=== PATIENT | male | born 1945 | race Caucasian/White ===

== ENCOUNTER 2017-03-23 20:29 | Inpatient (IN) | payer MEDICARE ==
[~2017-03-23] VITALS: Ht 182.9 cm; Wt 75.7 kg
[2017-03-23 20:45] VITALS: BP 132/91
[2017-03-23] MEDS ORDERED: ASPIRIN325 MG ORAL (20:48)
[2017-03-23] MEDS ORDERED: KEPPRA1000 MG ORAL (20:48)
[2017-03-23] MEDS ORDERED: QUETIAPINE FUMA25 MG ORAL (20:48)
[2017-03-23] MEDS ORDERED: GABAPENTIN100 MG ORAL (20:48)
[2017-03-23] MEDS ORDERED: LIDOCAINE700 M1 TP (20:48)
[2017-03-23] MEDS ORDERED: MELATONIN2.5 MG ORAL (20:48)
[2017-03-23] MEDS ORDERED: LEXAPRO10 MG ORAL (20:48)
[2017-03-23] MEDS ORDERED: LISINOPRIL5 MG ORAL (20:48)
[2017-03-23] MEDS ORDERED: ZOFRAN4 MG/5 ML ORAL (20:48)
[2017-03-23] MEDS ORDERED: TYLENOL650 MG/20. ORAL (20:48)
[2017-03-23] MEDS ORDERED: FAMOTIDINE20 MG ORAL (20:48)
[2017-03-23] MEDS ORDERED: AMANTADINE100 M2 ORAL (20:48)
[2017-03-23] MEDS ORDERED: HEPARIN SO5000 UNIT2 SUBQ (20:48)
[2017-03-23] MEDS ORDERED: BISACODYL5 MG RC (20:48)
[2017-03-23] MEDS ORDERED: TEMAZEPAM7.5 MG ORAL (20:48)
[2017-03-23] MEDS ORDERED: LOPRESSOR HCT1 EAC3 ORAL (20:48)
[2017-03-23] MEDS ORDERED: SENNA8.6 M2 PO (20:48)
[2017-03-23] MEDS ORDERED: CRESTOR20 MG ORAL (20:48)
[2017-03-23] MEDS ORDERED: LORazepam Inj 2mg/ml 1ml IV ONE (21:00)
--- NOTE | 2017-03-23 21:40 | Emergency Room Report ---
History of Present Illness General Chief Complaint: Seizure Source: Family Member, EMS Present Illness HPI This 71-year-old man presents after having a seizure at a shelter facility. He has a history of seizures. The last was in January. He was treated with Keppra. Recently they changed his medication and stopped keppra added Vimpat to that. Also added Depakote because the patient's had behavioral problems. He's also taking Seroquel. Apparently is no fever, vomiting, diarrhea. Patient's eating well. There's been no change in urine. The patient denies pain at this time. His daughter states he is back to baseline although more calm than usual. There are times when he has bouts of severe agitation. He also has sleep apnea. The patient suffered a hemorrhagic stroke in [place] last year. He was in rehabilitation there for 6 months. He was transferred here. He had his first seizure in January and was not treated with antiepileptic medication before that time. After that he was started on Keppra. An MRI revealed that he had some new stroke activity with a CT at that time was negative. The patient also has a history of atrial fibrillation. He is only on aspirin as a blood thinner. Allergies: Coded Allergies: No Known Allergies (Unverified , 03/23/17) Patient History Past Medical History: see triage record Past Surgical History: other - brain surgery for hemorrhagic stroke Social History Narrative SNF - with daughter Reviewed Nursing Documentation: PMH: Agreed, PSxH: Agreed Nursing Documentation-PM Past Medical History: No History, Except For Hx Cardiac Problems: Yes - A. Fib, High Cholesterol Hx Hypertension: Yes Hx Asthma: Yes Hx COPD: Yes Hx Gastrointestinal Problems: Yes - Dysphagia Hx Cerebrovascular Accident: Yes - Brain hemorrhage Hx Seizures: Yes Review of Systems All Other Systems: negative except mentioned in HPI Physical Exam Vital Signs Date Time Temp Pulse Resp B/P (MAP) Pulse Ox O2 Delivery O2 Flow Rate FiO2 03/23/17 20:25 98.4 94 20 132/91 97 Room Air Sp02 EP Interpretation: reviewed, normal General Appearance: alert, lethargic, Chronically Ill Head: normocephalic Eyes: bilateral eye normal inspection, bilateral eye PERRL ENT: moist mucus membranes Neck: supple Respiratory: lungs clear, normal breath sounds Cardiovascular #1: regular rate, rhythm Cardiovascular #2: 2+ radial (R) Gastrointestinal: normal inspection, normal bowel sounds, non tender, no mass, non-distended Musculoskeletal: back normal, gait/station normal, normal range of motion Neurologic: alert, responsive, sensory intact, motor weakness - L leg (chronic) Psychiatric: depressed affect Reflexes: 3+ knee (R), 2+ knee (L) Skin: normal inspection, warm/dry Medical Decision Making Diagnostic Impression: Primary Impression: Uncontrolled seizures Qualified Codes: 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 Differential includes, bleed, medication subtherapeutic levels, alert right imbalance, arrhythmia, acute myocardial infarction amongst others. The patient be evaluated with EKG, chest x-ray, labs including Depakote level. In addition a CT scan will be obtained of his head. The patient will be treated with a half milligram of Ativan to prevent more seizures here. Most likely the patient will need to be admitted to a monitored bed for observation. Patient tolerated IV Ativan well. EKG is without injury. Chest x-ray reveals a nodule on the right-hand side it is rotated. Labs are significant for deep low valproic acid level. A Depakote is given IV. The patient usually has sleep apnea home, didn't tolerate CPAP well here in the emergency department. Family wants the patient transferred to [facility] however [facility] had no beds. The patient is admitted to telemetry to Dr. Johnson. Laboratory Tests Test 03/23/17 21:30 03/24/17 06:53 White Blood Count 7.5 K/UL (4.8-10.8) 6.3 K/UL (4.8-10.8) Red Blood Count 4.40 M/UL (4.70-6.10) L 4.33 M/UL (4.70-6.10) L Hemoglobin 13.2 G/DL (14.2-18.0) L 13.0 G/DL (14.2-18.0) L Hematocrit 40.1 % (42.0-52.0) L 39.4 % (42.0-52.0) L Mean Corpuscular Volume 91 FL (80-99) 91 FL (80-99) Mean Corpuscular Hemoglobin 30.1 PG (27.0-31.0) 30.0 PG (27.0-31.0) Mean Corpuscular Hemoglobin Concent 33.0 G/DL (32.0-36.0) 32.9 G/DL (32.0-36.0) Red Cell Distribution Width 12.1 % (11.6-14.8) 12.3 % (11.6-14.8) Platelet Count 160 K/UL (150-450) 148 K/UL (150-450) L Mean Platelet Volume 8.6 FL (6.5-10.1) 8.2 FL (6.5-10.1) Neutrophils (%) (Auto) 49.3 % (45.0-75.0) 51.0 % (45.0-75.0) Lymphocytes (%) (Auto) 37.3 % (20.0-45.0) 36.6 % (20.0-45.0) Monocytes (%) (Auto) 9.4 % (1.0-10.0) 8.6 % (1.0-10.0) Eosinophils (%) (Auto) 3.2 % (0.0-3.0) H 2.9 % (0.0-3.0) Basophils (%) (Auto) 0.8 % (0.0-2.0) 0.9 % (0.0-2.0) Sodium Level 146 MMOL/L (136-145) H 147 MMOL/L (136-145) H Potassium Level 4.1 MMOL/L (3.5-5.1) 3.9 MMOL/L (3.5-5.1) Chloride Level 108 MMOL/L (98-107) H 108 MMOL/L (98-107) H Carbon Dioxide Level 33 MMOL/L (21-32) H 31 MMOL/L (21-32) Anion Gap 5 mmol/L (5-15) 9 mmol/L (5-15) Blood Urea Nitrogen 19 mg/dL (7-18) H 16 mg/dL (7-18) Creatinine 1.2 MG/DL (0.55-1.30) 1.0 MG/DL (0.55-1.30) Estimate Glomerular Filtration Rate mL/min (>60) mL/min (>60) Glucose Level 100 MG/DL (74-106) 90 MG/DL (74-106) Calcium Level 9.0 MG/DL (8.5-10.1) 9.1 MG/DL (8.5-10.1) Total Bilirubin 0.4 MG/DL (0.2-1.0) 0.5 MG/DL (0.2-1.0) Aspartate Amino Transferase (AST) 17 U/L (15-37) 15 U/L (15-37) Alanine Aminotransferase (ALT) 32 U/L (12-78) 28 U/L (12-78) Alkaline Phosphatase 92 U/L (46-116) 87 U/L (46-116) Total Creatine Kinase 47 U/L (26-308) Troponin I 0.004 ng/mL (0.000-0.056) 0.009 ng/mL (0.000-0.056) Total Protein 6.9 G/DL (6.4-8.2) 6.7 G/DL (6.4-8.2) Albumin 3.4 G/DL (3.4-5.0) 3.3 G/DL (3.4-5.0) L Globulin 3.5 g/dL 3.4 g/dL Albumin/Globulin Ratio 1.0 (1.0-2.7) 1.0 (1.0-2.7) Valproic Acid Level 17 MCG/ML (50-100) L Hemoglobin A1c 5.5 % (4.3-6.0) Thyroid Stimulating Hormone (TSH) 2.936 uiU/mL (0.358-3.740) EKG Diagnostic Results Rate: normal Rhythm: other - a fib ST Segments: no acute changes Rhythm Strip Diag. Results EP Interpretation: yes Rhythm: no PVC's, no ectopy, other - a flutter/fib Chest X-Ray Diagnostic Results Chest X-Ray Diagnostic Results : Chest X-Ray Ordered: Yes # of Views/Limited/Complete: 1 View Indication: Other EP Interpretation: Yes Interpretation: no consolidation, no effusion, no pneumothorax, other - R nodule - rotated Impression: No acute disease Electronically Signed by: Electronically signed by Burt Martinez MD CT/MRI/US Diagnostic Results CT/MRI/US Diagnostic Results : Imaging Test Ordered: head Impression No intracranial hemorrhage, mass effect or CT evidence of acute infarct. Status post right craniotomy with some adjacent area of encephalomalacia in compensatory dilatation of the right ventricle. Paraventricular white matter areas of low attenuation is nonspecific. No hydrocephalus or midline shift. Visualized right maxillary and ethmoid sinuses air-fluid levels may be from epistaxis or existing sinusitis and the soft tissue gas. Old right medial and inferior orbital wall fracture deformities. Mastoids are clear Last Vital Signs Date Time Temp Pulse Resp B/P (MAP) Pulse Ox O2 Delivery O2 Flow Rate FiO2 03/24/17 09:50 120 124/82 03/24/17 08:35 97.0 20 98 Nasal Cannula 2.0 03/24/17 07:41 28 Status: improved Disposition: ADMITTED INPATIENT Condition: Serious Referrals: NON PHYSICIAN (PCP) Burt Martinez M.D. Mar 23, 2017 21:40
[2017-03-23 21:45] VITALS: BP 135/97
[2017-03-23 21:47] LABS: BASOPHILS % (AUTO) 0.8 % (0.0-2.0); EOSINOPHILS % (AUTO) 3.2 % (0.0-3.0); HEMATOCRIT 40.1 % (42.0-52.0); HEMOGLOBIN 13.2 G/DL (14.2-18.0); LYMPHOCYTES % (AUTO) 37.3 % (20.0-45.0); MEAN CORPUSCULAR VOLUME 91 FL (80-99); MONOCYTES % (AUTO) 9.4 % (1.0-10.0); NEUTROPHILS % (AUTO) 49.3 % (45.0-75.0); PLATELET COUNT 160 K/UL (150-450); RED CELL DISTRIBUTION WIDTH 12.1 % (11.6-14.8); WHITE BLOOD COUNT 7.5 K/UL (4.8-10.8)
[2017-03-23 22:11] LABS: ANION GAP 5 mmol/L (5-15); BLOOD UREA NITROGEN 19 mg/dL (7-18); CARBON DIOXIDE 33 MMOL/L (21-32); CHLORIDE 108 MMOL/L (98-107); CREATININE 1.2 MG/DL (0.55-1.30); POTASSIUM 4.1 MMOL/L (3.5-5.1); SODIUM 146 MMOL/L (136-145)
[2017-03-23 22:16] LABS: ALANINE AMINOTRANSFERASE 32 U/L (12-78); ALBUMIN 3.4 G/DL (3.4-5.0); ALKALINE PHOSPHATASE 92 U/L (46-116); ASPARTATE AMINO TRANSFERASE 17 U/L (15-37); BILIRUBIN,TOTAL 0.4 MG/DL (0.2-1.0); CREATINE KINASE 47 U/L (26-308)
[2017-03-23] MEDS ORDERED: Valproate Sodium INJ 750 MG in D5W 47.5 ML IVPB ONE (22:30)
[2017-03-23 22:45] VITALS: BP 138/99
[2017-03-23 23:45] VITALS: BP 125/100
[2017-03-24] MEDS ORDERED: LORazepam Inj 2mg/ml 1ml IV PRN ×2 (03:15→03:45)
[2017-03-24] MEDS ORDERED: Sennosides 8.6mg ORAL PRN (03:30)
[2017-03-24 04:00] VITALS: BP 140/100
[2017-03-24 08:05] LABS: BASOPHILS % (AUTO) 0.9 % (0.0-2.0); EOSINOPHILS % (AUTO) 2.9 % (0.0-3.0); HEMATOCRIT 39.4 % (42.0-52.0); LYMPHOCYTES % (AUTO) 36.6 % (20.0-45.0); MEAN CORPUSCULAR VOLUME 91 FL (80-99); MONOCYTES % (AUTO) 8.6 % (1.0-10.0); PLATELET COUNT 148 K/UL (150-450); RED BLOOD COUNT 4.33 M/UL (4.70-6.10); RED CELL DISTRIBUTION WIDTH 12.3 % (11.6-14.8); WHITE BLOOD COUNT 6.3 K/UL (4.8-10.8)
[2017-03-24 08:35] VITALS: BP 124/82
--- NOTE | 2017-03-24 08:37 | Consultation ---
History of Present Illness General Date patient seen: Mar 24, 2017 Time patient seen: 07:15 Chief Complaint: Seizure Referring physician: dr Johnson Reason for Consultation: JAEL/CPAP management Present Illness HPI 71 y/ld male with PMH of COPD, asthma , ICH, Atrial fibrillation, s/p craniotomy , seizure disorder, JAEL ( on CPAP at night), presented after witnessed seizure episode at the snf facility. Patient under care of neurologist at [facility] group and was recently changed his anticonvulsant regimen Denied fever, vomiting, diarrhea. No chest pain, no SOB, no palpitations only takes ASA , no a/coag fir A fib CT head in EF revealed no evidence of acute IC pathology VSS ECG with A fib with RVR patient was admitted for further management Allergies: Coded Allergies: No Known Allergies (Unverified , 03/23/17) Medication History Scheduled Amantadine Hcl* (Amantadine*), 100 MG ORAL TWICE A DAY, (Reported) Aspirin* (Aspirin*), 325 MG ORAL DAILY, (Reported) Bisacodyl* (Dulcolax*), 10 MG RC ONCE, (Reported) Escitalopram Oxalate* (Lexapro*), 10 MG ORAL DAILY, (Reported) Famotidine (Famotidine), 20 MG ORAL TWICE A DAY, (Reported) Gabapentin* (Gabapentin*), 200 MG ORAL BID, (Reported) Heparin Sod (Porcine) (Heparin Sodium*), 5,000 UNITS SUBQ EVERY 12 HOURS, ( Reported) Levetiracetam (Keppra), 1,000 MG ORAL TWICE A DAY, (Reported) Lisinopril (Lisinopril*), 5 MG ORAL DAILY, (Reported) Metoprolol/Hydrochlorothiazide (Lopressor Hct 50-25 Tablet), 1 TAB ORAL DAILY, ( Reported) Ondansetron Hcl (Zofran), 4 MG ORAL Q8HR, (Reported) Quetiapine Fumarate* (Seroquel*), 25 MG ORAL DAILY, (Reported) Rosuvastatin Calcium* (Crestor*), 20 MG ORAL DAILY, (Reported) Temazepam (Temazepam*), 7.5 MG ORAL BEDTIME, (Reported) Scheduled PRN Acetaminophen (Acetaminophen), 650 MG ORAL Q6H PRN for Prn Headache/Temp > 101, (Reported) Melatonin (Melatonin), 105 MG ORAL BEDTIME PRN for Insomnia, (Reported) Miscellaneous Medications Lidocaine (Lidocaine), 700 MG TP, (Reported) Sennosides (Senna), Unknown Dose PO, (Reported) Patient History Healthcare decision maker Resuscitation status Full Code Advanced Directive on File No Review of Systems Constitutional: Reports: weakness Eye: Reports: no symptoms ENT: Reports: other - hx of craniotomy Respiratory: Reports: see HPI Cardiovascular: Reports: see HPI Gastrointestinal: Reports: constipation Genitourinary: Reports: no symptoms Musculoskeletal: Reports: muscle pain, muscle stiffness Skin: Reports: no symptoms Psychiatric: Reports: anxiety, depressed feelings Neurological: Reports: see HPI Hematologic/Lymphatic: Reports: no symptoms Physical Exam General Appearance: no apparent distress, alert, other - weak, bedriden Lines, tubes and drains: peripheral HEENT: normocephalic, atraumatic Respiratory/Chest: lungs clear - with moderate air entry , no respiratory distress Cardiovascular/Chest: normal peripheral pulses, no JVD, tachycardia, irregularly irregular - fib with tachy Abdomen: normal bowel sounds, non tender, soft Extremities: normal range of motion, non-tender, no calf tenderness Neurologic: alert, responsive Musculoskeletal: normal muscle bulk Last 24 Hour Vital Signs Date Time Temp Pulse Resp B/P (MAP) Pulse Ox O2 Delivery O2 Flow Rate FiO2 03/24/17 07:41 Nasal Cannula 2.0 28 03/24/17 07:41 98 Nasal Cannula 2.0 28 03/24/17 06:03 Nasal Cannula 2.0 28 03/24/17 04:00 98 03/24/17 04:00 97.0 99 20 140/100 100 03/24/17 03:00 105 20 99 Facial 35 03/24/17 01:00 98.5 105 20 125/100 99 Nasal Cannula 2.0 03/23/17 23:45 98.5 105 20 125/100 99 Nasal Cannula 2.0 03/23/17 22:45 98.4 102 20 138/99 99 Nasal Cannula 2.0 03/23/17 21:45 98.3 98 20 135/97 98 Nasal Cannula 2.0 03/23/17 20:45 96 20 Nasal Cannula 2.0 03/23/17 20:45 98.4 96 20 132/91 97 Nasal Cannula 2.0 03/23/17 20:25 98.4 94 20 132/91 97 Room Air Intake and Output 03/23/17 03/24/17 19:00 07:00 Intake Total 300 ml Balance 300 ml Intake Oral 0 ml IV Total 300 ml # Voids 2 Laboratory Tests Test 03/23/17 21:30 03/24/17 06:53 White Blood Count 7.5 K/UL (4.8-10.8) 6.3 K/UL (4.8-10.8) Red Blood Count 4.40 M/UL (4.70-6.10) L 4.33 M/UL (4.70-6.10) L Hemoglobin 13.2 G/DL (14.2-18.0) L 13.0 G/DL (14.2-18.0) L Hematocrit 40.1 % (42.0-52.0) L 39.4 % (42.0-52.0) L Mean Corpuscular Volume 91 FL (80-99) 91 FL (80-99) Mean Corpuscular Hemoglobin 30.1 PG (27.0-31.0) 30.0 PG (27.0-31.0) Mean Corpuscular Hemoglobin Concent 33.0 G/DL (32.0-36.0) 32.9 G/DL (32.0-36.0) Red Cell Distribution Width 12.1 % (11.6-14.8) 12.3 % (11.6-14.8) Platelet Count 160 K/UL (150-450) 148 K/UL (150-450) L Mean Platelet Volume 8.6 FL (6.5-10.1) 8.2 FL (6.5-10.1) Neutrophils (%) (Auto) 49.3 % (45.0-75.0) 51.0 % (45.0-75.0) Lymphocytes (%) (Auto) 37.3 % (20.0-45.0) 36.6 % (20.0-45.0) Monocytes (%) (Auto) 9.4 % (1.0-10.0) 8.6 % (1.0-10.0) Eosinophils (%) (Auto) 3.2 % (0.0-3.0) H 2.9 % (0.0-3.0) Basophils (%) (Auto) 0.8 % (0.0-2.0) 0.9 % (0.0-2.0) Sodium Level 146 MMOL/L (136-145) H Pending Potassium Level 4.1 MMOL/L (3.5-5.1) Pending Chloride Level 108 MMOL/L (98-107) H Pending Carbon Dioxide Level 33 MMOL/L (21-32) H Pending Anion Gap 5 mmol/L (5-15) Blood Urea Nitrogen 19 mg/dL (7-18) H Pending Creatinine 1.2 MG/DL (0.55-1.30) Pending Estimat Glomerular Filtration Rate mL/min (>60) Pending Glucose Level 100 MG/DL (74-106) Pending Calcium Level 9.0 MG/DL (8.5-10.1) Pending Total Bilirubin 0.4 MG/DL (0.2-1.0) Pending Aspartate Amino Transf (AST/SGOT) 17 U/L (15-37) Pending Alanine Aminotransferase (ALT/SGPT) 32 U/L (12-78) Pending Alkaline Phosphatase 92 U/L (46-116) Pending Total Creatine Kinase 47 U/L (26-308) Troponin I 0.004 ng/mL (0.000-0.056) Pending Total Protein 6.9 G/DL (6.4-8.2) Pending Albumin 3.4 G/DL (3.4-5.0) Pending Globulin 3.5 g/dL Pending Albumin/Globulin Ratio 1.0 (1.0-2.7) Valproic Acid (Depakene) Level 17 MCG/ML (50-100) L Hemoglobin A1c Pending Thyroid Stimulating Hormone (TSH) Pending Height (Feet): 6 Weight (Pounds): 167 Medications Current Medications Medications (Trade) Dose Ordered Sig/Roseanna Route PRN Reason Start Time Stop Time Status Last Admin Dose Admin Acetaminophen (Tylenol) 650 mg Q6H PRN ORAL Mild Pain/Temp > 100.5 03/24/17 03:15 04/23/17 03:14 Amantadine HCl (Symmetrel) 100 mg TWICE A DAY ORAL 03/24/17 09:00 04/23/17 08:59 Aspirin (ASA) 325 mg DAILY ORAL 03/24/17 09:00 04/23/17 08:59 Atorvastatin Calcium (Lipitor) 80 mg BEDTIME ORAL 03/24/17 21:00 04/23/17 20:59 Bisacodyl (Dulcolax) 10 mg DAILYPRN PRN RECTAL Constipation 03/24/17 03:15 04/23/17 03:14 Divalproex Sodium (Depakote Sprinkles) 125 mg EVERY 12 HOURS ORAL 03/24/17 09:00 04/23/17 08:59 Famotidine (Pepcid) 20 mg BID ORAL 03/24/17 09:00 04/23/17 08:59 Heparin Sodium (Porcine) (Heparin 5000 units/ml) 5,000 units EVERY 12 HOURS SUBQ 03/24/17 09:00 04/23/17 08:59 Hydrochlorothiazide (Hydrodiuril) 25 mg DAILY ORAL 03/24/17 09:00 04/23/17 08:59 Levetiracetam (Keppra) 1,000 mg Q12HR ORAL 03/24/17 09:00 04/23/17 08:59 Lidocaine (Lidoderm 5% PATCH) 1 patch DAILY TDERMAL 03/24/17 09:00 04/23/17 08:59 Lorazepam (Ativan 2mg/ml 1ml) 1 mg PRN PRN IV For Seizures 03/24/17 03:45 03/31/17 03:14 Metoprolol Tartrate (Lopressor) 50 mg DAILY ORAL 03/24/17 09:00 04/23/17 08:59 Ondansetron HCl (Zofran) 4 mg Q6H PRN IVP Nausea & Vomiting 03/24/17 03:15 04/23/17 03:14 Quetiapine Fumarate (SEROquel) 50 mg DAILY PRN ORAL Agitation 03/24/17 06:15 04/23/17 06:14 03/24/17 06:55 Sennosides (Senokot) 1 tab DAILY PRN ORAL Constipation 03/24/17 03:30 04/23/17 03:29 Sodium Chloride 1,000 ml @ 300 mls/hr Q3H20M IV 03/23/17 21:00 04/22/17 20:59 03/23/17 21:11 Assessment/Plan Assessment/Plan ASSESSMENT uncontrolled seizures HTN COPD/asthma JAEL A fib dysphagia s/p craniotomy 2 to ICH PLAN OF CARE tele seizure precautions, continue Keppra neuro eval as per PMD O2 HHN orn CXR noted BiPAP at night, encourage compliancecardio eval pending rate control with BB for now probably no a/coagulation due to hx of ICH continue ASA , statin, BB BP management with current regimen and optimize as needed continue psych meds swallow eval fup with ST recommendations afterwards DVT GI prophylaxis case discussed and evaluated by supervising physician Anibal ([facility]),Lindy HUGGINS Mar 24, 2017 08:37
--- NOTE | 2017-03-24 08:48 | Diagnostic Imaging Report ---
Indication: Lesion Technique: Continuous helical CT scanning of the head was performed without intravenous contrast material. Axial and coronal 5 mm sections were generated. Dose: Total Dose Length Product - DLP [address] Dose Index - CTDIvol(s) 70.38 mGy. Automated exposure control was utilized for dose reduction. Comparison: None Findings: Ventilation demonstrates an area of encephalomalacia in the right middle cerebral artery territory including the right posterior frontal, basal ganglia, internal capsule, and insula and right temporal lobe. There has been a right temporal craniotomy. The ventricles are prominent. There is prominence of cortical sulci. Periventricular low density is present. There is no shift of midline structures. No abnormal extra-axial fluid collections are noted. There is no evidence of intracerebral bleeding. No other abnormal high or low density areas are noted within the brain. There is a previous right medial orbital wall fracture. Opacification of the right maxillary and right ethmoid sinuses also noted. Impression: Atrophy. Chronic small vessel white matter ischemic change. Previous right temporal craniotomy. Encephalomalacia in the right middle cerebral artery territory consistent with old infarct. Old right medial orbital wall fracture. Inflammatory changes in the right ethmoid and right maxillary sinus. The above report is concordant with preliminary reading by [employer] . The CT scanner at [facility] is accredited by the [employer] and the scans are performed using protocols designed to limit radiation exposure to as low as reasonably achievable to attain images of sufficient resolution adequate for diagnostic evaluation.
[2017-03-24 08:57] LABS: ALANINE AMINOTRANSFERASE 28 U/L (12-78); ALBUMIN 3.3 G/DL (3.4-5.0); ALKALINE PHOSPHATASE 87 U/L (46-116); ANION GAP 9 mmol/L (5-15); ASPARTATE AMINO TRANSFERASE 15 U/L (15-37); BILIRUBIN,TOTAL 0.5 MG/DL (0.2-1.0); BLOOD UREA NITROGEN 16 mg/dL (7-18); CALCIUM 9.1 MG/DL (8.5-10.1); CARBON DIOXIDE 31 MMOL/L (21-32); CHLORIDE 108 MMOL/L (98-107); POTASSIUM 3.9 MMOL/L (3.5-5.1); SODIUM 147 MMOL/L (136-145)
[2017-03-24] MEDS ORDERED: Lisinopril 2.5mg tab ORAL SCH (09:00)
[2017-03-24] MEDS ORDERED: Metoprolol Tartrate 50mg tab ORAL SCH (09:00)
[2017-03-24] MEDS ORDERED: Heparin 5000 units/ml inj SUBQ SCH (09:00)
[2017-03-24] MEDS ORDERED: Depakote 125mg Sprinkles ORAL SCH (09:00)
--- NOTE | 2017-03-24 09:29 | Diagnostic Imaging Report ---
Indication: Shortness of breath Technique: XRAY Chest 1v Comparison:None Findings: The heart is normal in size. The aorta is elongated and calcified. There is a calcified granuloma in the right midlung. The remainder the lungs are clear. No pleural fluid. Impression: Old granulomatous disease. Atherosclerotic change. Otherwise negative.
--- NOTE | 2017-03-24 09:42 | History & Physical ---
History and Physical History & Physicial seen and examined. Dict in progress Phan Johnson MD Mar 24, 2017 09:42
--- NOTE | 2017-03-24 09:49 | General Progress Note ---
Assessment/Plan Status: stable Assessment/Plan 1- Acute Sz disorder 2- CVA 3- ICH 4- Dementia-agitated type 5- Afib-rate uncontrolled. 6. Hematuria 7. GI-DVT prophylaxia Plan: Neuro, Cardio, Urology ( Dr Ann ) are consulted. will hold anticoagulation for now, in face of active hematuria Subjective ROS Limited/Unobtainable: No Constitutional: Reports: no symptoms HEENT: Reports: no symptoms Cardiovascular: Reports: no symptoms Respiratory: Reports: no symptoms Allergies: Coded Allergies: No Known Allergies (Unverified , 03/23/17) Objective Last 24 Hour Vital Signs Date Time Temp Pulse Resp B/P (MAP) Pulse Ox O2 Delivery O2 Flow Rate FiO2 03/24/17 08:35 97.0 120 20 124/82 98 Nasal Cannula 2.0 03/24/17 07:41 Nasal Cannula 2.0 28 03/24/17 07:41 98 Nasal Cannula 2.0 28 03/24/17 06:03 Nasal Cannula 2.0 28 03/24/17 04:00 98 03/24/17 04:00 97.0 99 20 140/100 100 03/24/17 03:00 105 20 99 Facial 35 03/24/17 01:00 98.5 105 20 125/100 99 Nasal Cannula 2.0 03/23/17 23:45 98.5 105 20 125/100 99 Nasal Cannula 2.0 03/23/17 22:45 98.4 102 20 138/99 99 Nasal Cannula 2.0 03/23/17 21:45 98.3 98 20 135/97 98 Nasal Cannula 2.0 03/23/17 20:45 96 20 Nasal Cannula 2.0 03/23/17 20:45 98.4 96 20 132/91 97 Nasal Cannula 2.0 03/23/17 20:25 98.4 94 20 132/91 97 Room Air Intake and Output 03/23/17 03/24/17 19:00 07:00 Intake Total 300 ml Balance 300 ml Intake Oral 0 ml IV Total 300 ml # Voids 2 Laboratory Tests 03/23/17 21:30: White Blood Count 7.5, Red Blood Count 4.40L, Hemoglobin 13.2L, Hematocrit 40.1L , Mean Corpuscular Volume 91, Mean Corpuscular Hemoglobin 30.1, Mean Corpuscular Hemoglobin Concent 33.0, Red Cell Distribution Width 12.1, Platelet Count 160, Mean Platelet Volume 8.6, Neutrophils (%) (Auto) 49.3, Lymphocytes (% ) (Auto) 37.3, Monocytes (%) (Auto) 9.4, Eosinophils (%) (Auto) 3.2H, Basophils (%) (Auto) 0.8, Sodium Level 146H, Potassium Level 4.1, Chloride Level 108H, Carbon Dioxide Level 33H, Anion Gap 5, Blood Urea Nitrogen 19H, Creatinine 1.2, Estimat Glomerular Filtration Rate , Glucose Level 100, Calcium Level 9.0, Total Bilirubin 0.4, Aspartate Amino Transf (AST/SGOT) 17, Alanine Aminotransferase (ALT/SGPT) 32, Alkaline Phosphatase 92, Total Creatine Kinase 47, Troponin I 0.004, Total Protein 6.9, Albumin 3.4, Globulin 3.5, Albumin/ Globulin Ratio 1.0, Valproic Acid (Depakene) Level 17L 03/24/17 06:53: White Blood Count 6.3, Red Blood Count 4.33L, Hemoglobin 13.0L, Hematocrit 39.4L , Mean Corpuscular Volume 91, Mean Corpuscular Hemoglobin 30.0, Mean Corpuscular Hemoglobin Concent 32.9, Red Cell Distribution Width 12.3, Platelet Count 148L, Mean Platelet Volume 8.2, Neutrophils (%) (Auto) 51.0, Lymphocytes ( %) (Auto) 36.6, Monocytes (%) (Auto) 8.6, Eosinophils (%) (Auto) 2.9, Basophils (%) (Auto) 0.9, Sodium Level 147H, Potassium Level 3.9, Chloride Level 108H, Carbon Dioxide Level 31, Anion Gap 9, Blood Urea Nitrogen 16, Creatinine 1.0, Estimat Glomerular Filtration Rate , Glucose Level 90, Calcium Level 9.1, Total Bilirubin 0.5, Aspartate Amino Transf (AST/SGOT) 15, Alanine Aminotransferase ( ALT/SGPT) 28, Alkaline Phosphatase 87, Troponin I 0.009, Total Protein 6.7, Albumin 3.3L, Globulin 3.4, Albumin/Globulin Ratio 1.0, Hemoglobin A1c 5.5, Thyroid Stimulating Hormone (TSH) 2.936 Height (Feet): 6 Weight (Pounds): 167 General Appearance: no apparent distress EENT: PERRL/EOMI Neck: supple Cardiovascular: normal rate Respiratory/Chest: lungs clear Abdomen: soft Extremities: other - left karena-plegia Neurologic: other - left hemipelegia. stuttering Phan Johnson MD Mar 24, 2017 09:49
[2017-03-24] MEDS: Amantadine 100mg cap ORAL SCH ×2 (09:50→17:19)
[2017-03-24] MEDS: Enoxaparin 40mg Inj SUBQ SCH (10:00)
--- NOTE | 2017-03-24 11:15 | Consultation ---
DATE OF CONSULTATION: 03/24/2017 UROLOGY CONSULTATION CONSULTING PHYSICIAN: Willian Jacob M.D. ATTENDING/REFERRING PHYSICIAN: Phan Johnson M.D. REASON FOR CONSULTATION: I was asked by Dr. Johnson to evaluate this 71-year-old gentleman regarding history of gross hematuria. HISTORY OF PRESENT ILLNESS: Briefly, the patient had a hemorrhagic stroke in [facility] approximately 6-8 months back. He had been on Eliquis prior to that time. He eventually recovered and went to rehabilitation. He returned to [place] and in January had a seizure. He was treated with antiepileptic medication. He has done okay after that time, but recently suffered another seizure and was eventually brought here for further evaluation. The patient has been maintained on aspirin as a blood thinner because of history of atrial fibrillation. There has been no additional anticoagulation given his previous history of hemorrhagic stroke on the Eliquis. During hospitalization here, he was noted to have gross hematuria. As such, I was asked to evaluate the patient. PAST MEDICAL HISTORY: 1. Stroke. 2. Seizure disorder. 3. Atrial fibrillation. PAST SURGICAL HISTORY: Craniotomy for intracranial hemorrhage decompression. MEDICATIONS: Please see the chart for current medications, administration details. As noted above, the patient is on aspirin at baseline for atrial fibrillation. ALLERGIES: No known drug allergies. SOCIAL HISTORY: Unremarkable for tobacco, alcohol, or drug use. FAMILY HISTORY: Noncontributory. REVIEW OF SYSTEMS: A 12-system review of systems is essentially unremarkable outside of what was described above. PHYSICAL EXAMINATION: GENERAL: The patient is an older gentleman, awake, alert, appears oriented, in no obvious distress. HEENT: NC/AT. EOMI. Oropharynx clear. NECK: Supple. CHEST: Within normal limits. ABDOMEN: Soft, nontender, nondistended. EXTREMITIES: Warm and well perfused. No cyanosis, clubbing, or edema. NEUROLOGIC: Notable for left arm hemiplegia. GENITOURINARY: Reveals a normal male phallus, circumcised. No discharge, lesions, or curvature. There are bilateral descended testes and cord structures with no masses or tenderness to palpation. LABORATORY DATA: White blood cell count 6.3, hematocrit 39.4, platelets 148,000. Sodium 147, potassium 3.9, chloride 108, bicarbonate 31, BUN 16, creatinine 1.0, glucose 90, calcium 9.1. LFTs within normal limits. Alkaline phosphatase 87. Valproic acid level 17. DIAGNOSTIC IMAGING: Head CT with atrophy, chronic small-vessel white matter ischemic changes, previous right temporal craniotomy, encephalomalacia in the right middle cerebral artery territory consistent with an old infarct, old right medial orbital wall fracture, inflammatory changes in the ethmoid and maxillary sinuses. ASSESSMENT AND PLAN: In summary, the patient is a 71-year-old gentleman with history of previous hemorrhagic stroke and atrial fibrillation, maintained on aspirin. He presents to the hospital with a seizure and has history of the same. His course was notable for gross hematuria. Physical exam reveals left arm hemiplegia and is otherwise unremarkable. Laboratory data is also unremarkable although no urinalysis or urine culture has been collected or sent. Diagnostic imaging with head CT scan does not reveal any evidence of fresh stroke. I discussed these findings today with the patient's at the bedside. I am going to order urinalysis and urine culture to evaluate for infection. I will start the patient on some antibiotics presumptively. We will hold any anticoagulation for the time being until the patient's gross hematuria improves. If it fails to improve with these measures, we will consider performing a CT scan or further investigation as warranted. Additionally, I performed a bladder scan at the patient's bedside today and revealed a postvoid residual of mL indicating that he is draining his bladder well despite the hematuria and clots and does not currently need a catheter at this time. Thank you for allowing me to participate in the care of this nice gentleman. Please do not hesitate to contact me with any questions that you may further have regarding his care. I will be happy to continue to see him with you as needed. Willian Jacob M.D. DR: Odin JOB#: [id number] CC:
[2017-03-24] MEDS ORDERED: Metoprolol 5mg/5ml Inj IVP ONE (12:00)
[2017-03-24] MEDS ORDERED: ceFAZolin 1gm/50ml Premix 50 ML IV SCH (12:00)
--- NOTE | 2017-03-24 12:25 | Neurology Progress Note ---
Objective Physical Exam Last Vital Signs Date Time Temp Pulse Resp B/P (MAP) Pulse Ox O2 Delivery O2 Flow Rate FiO2 03/24/17 09:50 120 124/82 03/24/17 08:35 97.0 20 98 Nasal Cannula 2.0 03/24/17 07:41 28 Laboratory Tests Test 03/23/17 21:30 03/24/17 06:53 White Blood Count 7.5 K/UL (4.8-10.8) 6.3 K/UL (4.8-10.8) Red Blood Count 4.40 M/UL (4.70-6.10) L 4.33 M/UL (4.70-6.10) L Hemoglobin 13.2 G/DL (14.2-18.0) L 13.0 G/DL (14.2-18.0) L Hematocrit 40.1 % (42.0-52.0) L 39.4 % (42.0-52.0) L Mean Corpuscular Volume 91 FL (80-99) 91 FL (80-99) Mean Corpuscular Hemoglobin 30.1 PG (27.0-31.0) 30.0 PG (27.0-31.0) Mean Corpuscular Hemoglobin Concent 33.0 G/DL (32.0-36.0) 32.9 G/DL (32.0-36.0) Red Cell Distribution Width 12.1 % (11.6-14.8) 12.3 % (11.6-14.8) Platelet Count 160 K/UL (150-450) 148 K/UL (150-450) L Mean Platelet Volume 8.6 FL (6.5-10.1) 8.2 FL (6.5-10.1) Neutrophils (%) (Auto) 49.3 % (45.0-75.0) 51.0 % (45.0-75.0) Lymphocytes (%) (Auto) 37.3 % (20.0-45.0) 36.6 % (20.0-45.0) Monocytes (%) (Auto) 9.4 % (1.0-10.0) 8.6 % (1.0-10.0) Eosinophils (%) (Auto) 3.2 % (0.0-3.0) H 2.9 % (0.0-3.0) Basophils (%) (Auto) 0.8 % (0.0-2.0) 0.9 % (0.0-2.0) Sodium Level 146 MMOL/L (136-145) H 147 MMOL/L (136-145) H Potassium Level 4.1 MMOL/L (3.5-5.1) 3.9 MMOL/L (3.5-5.1) Chloride Level 108 MMOL/L (98-107) H 108 MMOL/L (98-107) H Carbon Dioxide Level 33 MMOL/L (21-32) H 31 MMOL/L (21-32) Anion Gap 5 mmol/L (5-15) 9 mmol/L (5-15) Blood Urea Nitrogen 19 mg/dL (7-18) H 16 mg/dL (7-18) Creatinine 1.2 MG/DL (0.55-1.30) 1.0 MG/DL (0.55-1.30) Estimat Glomerular Filtration Rate mL/min (>60) mL/min (>60) Glucose Level 100 MG/DL (74-106) 90 MG/DL (74-106) Calcium Level 9.0 MG/DL (8.5-10.1) 9.1 MG/DL (8.5-10.1) Total Bilirubin 0.4 MG/DL (0.2-1.0) 0.5 MG/DL (0.2-1.0) Aspartate Amino Transf (AST/SGOT) 17 U/L (15-37) 15 U/L (15-37) Alanine Aminotransferase (ALT/SGPT) 32 U/L (12-78) 28 U/L (12-78) Alkaline Phosphatase 92 U/L (46-116) 87 U/L (46-116) Total Creatine Kinase 47 U/L (26-308) Troponin I 0.004 ng/mL (0.000-0.056) 0.009 ng/mL (0.000-0.056) Total Protein 6.9 G/DL (6.4-8.2) 6.7 G/DL (6.4-8.2) Albumin 3.4 G/DL (3.4-5.0) 3.3 G/DL (3.4-5.0) L Globulin 3.5 g/dL 3.4 g/dL Albumin/Globulin Ratio 1.0 (1.0-2.7) 1.0 (1.0-2.7) Valproic Acid (Depakene) Level 17 MCG/ML (50-100) L Hemoglobin A1c 5.5 % (4.3-6.0) Thyroid Stimulating Hormone (TSH) 2.936 uiU/mL (0.358-3.740) Impression/Recommendations Problems: (1) Seizure as late effect of cerebrovascular accident (CVA) Status: stable Recommendations #[id number] GRICELDA BOND Mar 24, 2017 12:25
[2017-03-24] MEDS ORDERED: Metoprolol Tartrate 50mg tab ORAL ONE (12:30)
[2017-03-24 12:45] VITALS: BP 135/106
[2017-03-24] MEDS: ceFAZolin sod 1 GM in NS 55 ML IVPB SCH ×2 (13:50→22:30)
[2017-03-24] MEDS: Lacosamide 100 MG TABLET ORAL SCH ×2 (14:17→20:12)
--- NOTE | 2017-03-24 16:00 | History and Physical Report ---
DATE OF ADMISSION: 03/23/2017 SOURCE OF INFORMATION: The patient and EMR. HISTORY OF PRESENT ILLNESS: The patient is a pleasant 71-year-old white male, who presented with an acute seizure episode from a jail facility ([facility]). The patient is status post CVA and left-sided hemiplegia, status post completion of the rehabilitation treatment in the [facility]. At the time of evaluation, the patient denies any chest pain, shortness of breath. No abnormal bleeding. No abnormal diarrhea or constipation. ALLERGIES: NKDA. FAMILY HISTORY: Reviewed, noncontributory. SOCIAL HISTORY: This patient currently lives in the jail facility, [facility]. No documented history of illicit drug abuse noted. PAST MEDICAL HISTORY: ICH/CVA with left-sided hemiplegia, atrial fibrillation, hypercholesterolemia, asthma, COPD, and seizure disorder with depressed episode in January. CURRENT HOSPITAL MEDICATIONS: Reviewed including but not limited to amantadine, aspirin 325, Depakote 125 mg q.12 hours, Lovenox 40 mg subcutaneous, hydrochlorothiazide 25 mg t.i.d., metoprolol 50 mg b.i.d., Seroquel 50 mg p.o. p.r.n. agitation. PHYSICAL EXAMINATION: VITAL SIGNS: Blood pressure 130/90, temperature 98.2, pulse oximetry 98% on room air, pulse rate 100-110. HEAD AND NECK: Left-sided flaccid hemiparesis. CHEST: Clear to auscultation. HEART: S1 and S2. Irregularly irregular. ABDOMEN: Soft. No organomegaly. MUSCULOSKELETAL: Left-sided hemiplegia. NEUROLOGIC: The patient is awake, alert, oriented x2, the patient is anxious. LABORATORY DATA: Dated 03/23/2017, shows WBC 7.5, hemoglobin 13.2, platelet of 160,000. Sodium 146, potassium 4.1, BUN 19, creatinine 1.2. TSH of 2.9. CT scan of the brain is negative for any acute pathology, positive for old changes. ASSESSMENT: 1. Acute seizure disorder. 2. Cerebrovascular accident with left-sided hemiplegia. 3. Dementia, agitated type. 4. Hypernatremia. 5. Anemia. 6. Atrial fibrillation, uncontrolled rhythm. 7. Intracerebral hemorrhage, status post craniotomy - history of. 8. Gastrointestinal and deep vein thrombosis prophylaxis. PLAN OF CARE: We would hold on the anticoagulation for atrial fibrillation given the recent history of atrial fibrillation and ICH. We will continue with aspirin 325 mg, Lovenox 40 mg subcutaneous. Neurology, Dr. Alberto is consulted and Cardiology, Dr. Hood. We will continue with current telemonitoring. A 2D echo is pending. Phan Johnson M.D. DR: JASSI JOB#: [id number] CC:
[2017-03-24 17:02] LABS: APPEARANCE,URINE VERY CLOUDY; BILIRUBIN, URINE NEGATIVE (NEGATIVE); GLUCOSE, URINE (UA) NEGATIVE (NEGATIVE); KETONES,URINE NEGATIVE (NEGATIVE); LEUKOCYTE ESTERASE ,URINE 1+ (NEGATIVE); NITRITE,URINE NEGATIVE (NEGATIVE); PH,URINE 6.5 (4.5-8.0); PROTEIN,URINE 3+ (NEGATIVE); UROBILINOGEN,URINE NORMAL MG/DL (0.0-1.0)
[2017-03-24 17:04] LABS: COLOR,URINE RED
[2017-03-24 20:00] VITALS: BP 123/92
--- NOTE | 2017-03-24 20:00 | Consultation ---
DATE OF CONSULTATION: 03/24/2017 NEUROLOGICAL CONSULTATION CONSULTING PHYSICIAN: Aaron Alberto M.D. ATTENDING/REQUESTING PHYSICIAN: Phan Johnson M.D. REASON FOR CONSULTATION: This is a 71-year-old man seen in neurological consultation to evaluate exacerbation of seizure disorder. HISTORY OF PRESENT ILLNESS: The patient has somewhat complex medical history. According to the family and from medical records, I know that on 12/23/2015, he underwent acute right middle cerebral artery distribution hemorrhagic stroke and required craniotomy and hemorrhage evacuation. He remained with residual left-sided hemiparesis, initially given medications for stroke prevention. In 01/2017, the patient had an exacerbation of symptomatology and had a generalized seizure episode. During [facility] hospitalization, neurology assessment revealed presence of acute ischemic stroke. The patient was placed on Keppra and Vimpat. Diagnostic studies included 2D echocardiogram with negative bubble study, MRI of the brain reported as confirming presence of acute stroke, carotid duplex studies revealed right vertebral artery occlusion, otherwise unremarkable. He was able to move his left lower extremity initially 1/5 and then eventually 3/5, unable to move left arm. The patient was maintained on 500 mg of Keppra and 300 mg of Vimpat until last three days when some dosing changes were performed including increasing dose of Seroquel from 200 to a total of up to 250. Keppra remained 500 and Vimpat remained 150 b.i.d. The patient was also given addition of Depakote. Although first seizure was developed in 01/2017, the patient now developed second seizure as was witnessed at rehabilitation facility. With this, he was brought to emergency room. On admission, his vital signs were stable. He was afebrile. Blood pressure 132/91. The patient was given 0.5 mg Ativan to prevent seizures. His initial laboratory work included mild anemia, hemoglobin 13.2 and hematocrit 40.1. Chemistry panel with carbon dioxide of 33, BUN of 19, and toxicology panel with valproic acid of 17. Stat CT of the brain was obtained and this revealed encephalomalacia in the right MCA territory including right posterior frontal basal ganglia, internal capsule, and insula as well as right temporal lobe. There was evidence of right temporal craniotomy, ventricles were prominent as well as diffuse cortical atrophy. There was no evidence of acute stroke, noted right medial orbital wall fracture, old. Opacification of the right maxillary and right ethmoid sinuses. There was no evidence of acute stroke, no hemorrhage. His chest x-ray old with known granulomatous disease, atherosclerotic changes, otherwise negative. , no PVC, no ectopy, there is evidence of atrial flutter/atrial fibrillation. His treatment included use of Depakote 125 mg b.i.d., with increased Keppra of 1000 mg b.i.d. No further seizure activities noted, although the patient continued to have persistent behavioral abnormalities. PAST MEDICAL HISTORY: History of atrial fibrillation, hyperlipidemia, history of acute hemorrhagic stroke in 2015, acute ischemic stroke in 01/2017, single seizure in 01/2017, and repeated seizure with current admission. MEDICATIONS: Treatment list on admission included amantadine 100 mg twice a day, aspirin, Dulcolax, Lexapro 10 mg, famotidine 20 mg, gabapentin 200 mg b.i.d., Keppra 1000 mg b.i.d., lisinopril, melatonin, metoprolol, Zofran, Seroquel 250 mg a day, temazepam p.r.n., and Crestor 20 mg daily. ALLERGIES: None reported. SOCIAL HISTORY: He has supportive family. He is currently in rehabilitation facility. No evidence of alcohol or drug abuse. Nonsmoker. He moved from [place] to [place] two years ago. FAMILY HISTORY: Noncontributory. REVIEW OF SYMPTOMS: The patient indicated he is feeling well and he has no changes in his condition, but he is quite incoherent, confused, and unable to provide with full information. PHYSICAL EXAMINATION: GENERAL: This is a well-developed and well-nourished man, not in acute distress, lying comfortably in bed, his daughter and at bedside. VITAL SIGNS: His vital signs now are stable except heart rate of 120, temperature is 97.0, blood pressure 124/82, and pulse oximetry 98%. HEENT: Head normocephalic. Right temporal craniotomy defect noted. NECK: Supple. No meningeal signs. MUSCULOSKELETAL: Unremarkable. There are no deformities. Peripheral pulses 1+ and symmetric. NEUROLOGIC: MENTAL STATUS: The patient is alert and oriented x2. Speech is fluent with no evidence of aphasia. He is confused, disoriented, and he feels that he is in [place] and asking to be admitted to the hospital. He is slightly agitated, restless, but responding to verbal command. CRANIAL NERVE II: Pupils both responding to light and accommodation. Extraocular movement with vertical gaze limitation, horizontal gaze normal, there are slight bilateral eye retractions. Visual eubanks are normal. Fundi poorly visualized. CRANIAL NERVE V: Normal corneal responses. CRANIAL NERVE VII: Drooped left nasolabial fold. CRANIAL NERVE VIII: Normal hearing. CRANIAL NERVES IX THROUGH XII: Tongue is in midline. Symmetric palate elevation. MOTOR EXAMINATION: A 0/5 weakness in left upper extremity with increased muscle tone. Weakness 1/5 with left leg distally. Strength 5/5 in right upper and right lower extremity. Deep tendon reflexes depressed bilaterally. Plantar responses are flexor on the right and extensor on the left. SENSORY EXAMINATION: Decreased response to pin stimulation on left side of the body. IMPRESSION: 1. Chronic seizure disorder, breakthrough episode. 2. Status post right middle cerebral artery distribution hemorrhagic stroke, craniotomy with left hemiplegia, hemisensory loss. 3. Extensive ischemic cerebrovascular disease with evidence of cognitive loss and behavioral abnormalities. 4. Paroxysmal atrial fibrillation. 5. Hyperlipidemia. 6. Rule out acute right middle cerebral artery distribution stroke. RECOMMENDATION: 1. MRI of the brain without contrast. 2. Maintain preexistent treatment changing only Depakote to 500 mg b.i.d. Recheck liver function and blood level in the morning. 3. Maintain Keppra 1000 mg b.i.d. 4. Gradual titration down on Vimpat to 100 mg b.i.d. 5. Otherwise, the patient to remain on preexistent treatment which also included aspirin and statin. Thank you for allowing me to see this interesting patient in neurological consultation. Aaron Alberto M.D. DR: Sav JOB#: [id number] CC:
[2017-03-24] MEDS: Atorvastatin 80mg tab ORAL SCH (20:11)
[2017-03-24] MEDS: Metoprolol Tartrate 50mg tab ORAL SCH (20:13)
[2017-03-24] MEDS: Depakote 500mg tab ORAL SCH (20:13)
[2017-03-25] VITALS: BP 117/76
[2017-03-25 04:00] VITALS: BP 138/96
[2017-03-25] MEDS: ceFAZolin sod 1 GM in NS 55 ML IVPB SCH ×3 (06:00→22:55)
[2017-03-25 08:00] VITALS: BP 125/93
--- NOTE | 2017-03-25 08:16 | General Progress Note ---
Assessment/Plan Status: stable Assessment/Plan 1. Acute on chronic seizure disorder. 2. Cerebrovascular accident with left-sided hemiplegia. 3. Dementia, agitated type. 4. Hypernatremia. 5. Anemia. 6. Atrial fibrillation, uncontrolled rhythm. 7. Intracerebral hemorrhage, status post craniotomy - history of. 8. Gastrointestinal and deep vein thrombosis prophylaxis. 9. hematuria Plan: Notes from Neuro, Cardio, Urology ( Dr Ann ) are reviewed Ok to continue anti Platere treatment. No Full anticoagulation Subjective ROS Limited/Unobtainable: No Allergies: Coded Allergies: No Known Allergies (Unverified , 03/23/17) Objective Last 24 Hour Vital Signs Date Time Temp Pulse Resp B/P (MAP) Pulse Ox O2 Delivery O2 Flow Rate FiO2 03/25/17 07:30 97 Bi-pap 35 03/25/17 07:30 Nasal Cannula 2.0 28 03/25/17 05:25 91 19 99 Facial 35 03/25/17 04:00 35 03/25/17 04:00 91 03/25/17 04:00 97.0 81 20 138/96 99 03/25/17 03:13 88 21 99 Facial 35 03/25/17 01:03 91 22 99 Facial 35 03/25/17 00:00 99 03/25/17 00:00 35 03/25/17 00:00 97.0 81 20 117/76 93 03/24/17 23:12 93 16 99 Facial 35 03/24/17 20:13 81 123/92 03/24/17 20:00 97.3 81 20 123/92 95 03/24/17 20:00 90 03/24/17 19:23 96 Nasal Cannula 2.0 28 03/24/17 19:23 Nasal Cannula 2.0 28 03/24/17 15:43 75 03/24/17 13:15 96 135/106 03/24/17 12:46 96 135/106 03/24/17 12:45 97.7 96 18 135/106 96 Nasal Cannula 2.0 03/24/17 12:01 85 03/24/17 09:50 120 124/82 03/24/17 08:35 97.0 120 20 124/82 98 Nasal Cannula 2.0 Intake and Output 03/24/17 03/25/17 19:00 07:00 Intake Total 360 ml 220 ml Output Total 400 ml 1375 ml Balance -40 ml -1155 ml Intake Oral 360 ml IV Total 220 ml Output Urine Total 400 ml 1375 ml # Voids 4 Laboratory Tests 03/24/17 15:00: Urine Color Red, Urine Appearance Very cloudy, Urine pH 6.5, Urine Specific [place] 1.010, Urine Protein 3+H, Urine Glucose (UA) Negative, Urine Ketones Negative, Urine Occult Blood 5+H, Urine Nitrite Negative, Urine Bilirubin Negative, Urine Urobilinogen Normal, Urine Leukocyte Esterase 1+H, Urine RBC TntcH, Urine WBC 0-2, Urine Squamous Epithelial Cells None, Urine Bacteria Few Height (Feet): 6 Weight (Pounds): 167 General Appearance: no apparent distress EENT: PERRL/EOMI Neck: supple Cardiovascular: normal rate Respiratory/Chest: lungs clear Abdomen: soft Extremities: other - Left hemiplegia Neurologic: other - Dementia. AOx3 Phan Johnson MD Mar 25, 2017 08:16
[2017-03-25] MEDS: Amantadine 100mg cap ORAL SCH ×2 (08:43→17:54)
[2017-03-25] MEDS: Lacosamide 100 MG TABLET ORAL SCH ×2 (08:44→21:55)
[2017-03-25] MEDS: Depakote 500mg tab ORAL SCH ×2 (08:44→21:55)
[2017-03-25] MEDS: Enoxaparin 40mg Inj SUBQ SCH (08:44)
[2017-03-25] MEDS: Metoprolol Tartrate 50mg tab ORAL SCH ×2 (09:45→21:55)
[2017-03-25 12:00] VITALS: BP 124/95
--- NOTE | 2017-03-25 14:04 | Pulmonology Progress Note ---
Assessment/Plan Assessment/Plan ASSESSMENT chronic seizure disorer with breakthrough episode HTN COPD/asthma JAEL s/p right middle cerebral artery distribution hemorrhagic stroke, craniotomy with left hemiplegia, hemisensory loss. extensive ischemic cerebrovascular disease with evidence of cognitive loss and behavioral abnormalities. paroxysmal atrial fibrillation. hyperlipidemia. rule out acute right middle cerebral artery distribution stroke. A fib dysphagia PLAN OF CARE tele seizure precautions, neuro eval appreciated MRI brain a/convulsant management as per neuro O2 HHN orn CXR noted BiPAP at night, encourage compliance cardio eval pending rate control with BB for now no a/coagulation due to hx of ICH continue ASA , statin, BB BP management with current regimen and optimize as needed continue psych meds swallow eval fup with ST recommendations afterwards DVT GI prophylaxis case discussed and evaluated by supervising physician Subjective Allergies: Coded Allergies: No Known Allergies (Unverified , 03/23/17) Subjective denies chest pain SOB , rate controlled Objective Last 24 Hour Vital Signs Date Time Temp Pulse Resp B/P (MAP) Pulse Ox O2 Delivery O2 Flow Rate FiO2 03/25/17 12:00 97.9 81 20 124/95 94 Nasal Cannula 2.0 03/25/17 09:45 86 125/93 03/25/17 08:00 89 03/25/17 08:00 97.7 86 20 125/93 95 03/25/17 07:30 97 Bi-pap 35 03/25/17 07:30 Nasal Cannula 2.0 28 03/25/17 05:25 91 19 99 Facial 35 03/25/17 04:00 35 03/25/17 04:00 91 03/25/17 04:00 97.0 81 20 138/96 99 03/25/17 03:13 88 21 99 Facial 35 03/25/17 01:03 91 22 99 Facial 35 03/25/17 00:00 99 03/25/17 00:00 35 03/25/17 00:00 97.0 81 20 117/76 93 03/24/17 23:12 93 16 99 Facial 35 03/24/17 20:13 81 123/92 03/24/17 20:00 97.3 81 20 123/92 95 03/24/17 20:00 90 03/24/17 19:23 96 Nasal Cannula 2.0 28 03/24/17 19:23 Nasal Cannula 2.0 28 03/24/17 15:43 75 Intake and Output 03/24/17 03/25/17 19:00 07:00 Intake Total 360 ml 220 ml Output Total 400 ml 1375 ml Balance -40 ml -1155 ml Intake Oral 360 ml IV Total 220 ml Output Urine Total 400 ml 1375 ml # Voids 4 Objective General Appearance: no apparent distress, alert, other - weak, bedriden Lines, tubes and drains: peripheral HEENT: normocephalic, atraumatic Respiratory/Chest: lungs clear - with moderate air entry , no respiratory distress Cardiovascular/Chest: normal peripheral pulses, no JVD, tachycardia, irregularly irregular - fib with tachy Abdomen: normal bowel sounds, non tender, soft Extremities: normal range of motion, non-tender, no calf tenderness Neurologic: alert, responsive Musculoskeletal: normal muscle bulk Microbiology Date/Time Source Procedure Growth Status 03/24/17 15:00 Urine,Clean Catch Urine Culture - Preliminary Resulted Laboratory Tests 03/24/17 15:00: Urine Color Red, Urine Appearance Very cloudy, Urine pH 6.5, Urine Specific [place] 1.010, Urine Protein 3+H, Urine Glucose (UA) Negative, Urine Ketones Negative, Urine Occult Blood 5+H, Urine Nitrite Negative, Urine Bilirubin Negative, Urine Urobilinogen Normal, Urine Leukocyte Esterase 1+H, Urine RBC TntcH, Urine WBC 0-2, Urine Squamous Epithelial Cells None, Urine Bacteria Few Current Medications Medications (Trade) Dose Ordered Sig/Roseanna Route PRN Reason Start Time Stop Time Status Last Admin Dose Admin Acetaminophen (Tylenol) 650 mg Q6H PRN ORAL Mild Pain/Temp > 100.5 03/24/17 03:15 04/23/17 03:14 Amantadine HCl (Symmetrel) 100 mg TWICE A DAY ORAL 03/24/17 09:00 04/23/17 08:59 03/25/17 08:43 Aspirin (ASA) 325 mg DAILY ORAL 03/24/17 09:00 04/23/17 08:59 Atorvastatin Calcium (Lipitor) 80 mg BEDTIME ORAL 03/24/17 21:00 04/23/17 20:59 03/24/17 20:11 Bisacodyl (Dulcolax) 10 mg DAILYPRN PRN RECTAL Constipation 03/24/17 03:15 04/23/17 03:14 Cefazolin Sodium 1 gm/Sodium Chloride 55 ml @ 110 mls/hr Q8HR IVPB 03/24/17 14:00 03/31/17 13:59 03/25/17 13:56 Divalproex Sodium (Depakote) 500 mg EVERY 12 HOURS ORAL 03/24/17 21:00 04/23/17 20:59 03/25/17 08:44 Enoxaparin Sodium (Lovenox) 40 mg DAILY SUBQ 03/24/17 10:00 04/23/17 09:59 Famotidine (Pepcid) 20 mg BID ORAL 03/24/17 09:00 04/23/17 08:59 03/25/17 08:43 Hydrochlorothiazide (Hydrodiuril) 25 mg DAILY ORAL 03/24/17 09:00 04/23/17 08:59 03/25/17 08:43 Lacosamide (Vimpat) 100 mg Q12HR ORAL 03/24/17 14:00 04/23/17 13:59 03/25/17 08:44 Levetiracetam (Keppra) 500 mg Q12HR ORAL 03/24/17 21:00 04/23/17 20:59 03/25/17 08:43 Lidocaine (Lidoderm 5% PATCH) 1 patch DAILY TDERMAL 03/24/17 09:00 04/23/17 08:59 Lorazepam (Ativan 2mg/ml 1ml) 1 mg PRN PRN IV For Seizures 03/24/17 03:45 03/31/17 03:14 Metoprolol Tartrate (Lopressor) 50 mg Q12HR ORAL 03/24/17 21:00 04/23/17 20:59 03/25/17 09:45 Ondansetron HCl (Zofran) 4 mg Q6H PRN IVP Nausea & Vomiting 03/24/17 03:15 04/23/17 03:14 Quetiapine Fumarate (SEROquel) 50 mg DAILY PRN ORAL Agitation 03/24/17 06:15 04/23/17 06:14 03/24/17 06:55 Quetiapine Fumarate (SEROquel) 100 mg Q12HR ORAL 03/24/17 14:00 04/23/17 13:59 03/25/17 08:50 Sennosides (Senokot) 1 tab DAILY PRN ORAL Constipation 03/24/17 03:30 04/23/17 03:29 Anibal ([place])Lindy NP Mar 25, 2017 14:04
[2017-03-25 16:00] VITALS: BP 119/86
[2017-03-25] MEDS: Atorvastatin 80mg tab ORAL SCH (21:55)
[2017-03-25 23:07] VITALS: BP 110/70
--- NOTE | 2017-03-25 23:27 | Cardiology Progress Note ---
Assessment/Plan Assessment/Plan The patient is seen and examined, full consult note is dictated. Objective Last 24 Hour Vital Signs Date Time Temp Pulse Resp B/P (MAP) Pulse Ox O2 Delivery O2 Flow Rate FiO2 03/25/17 23:07 98.2 89 19 110/70 95 Room Air 03/25/17 21:55 91 119/86 03/25/17 19:00 Nasal Cannula 2.0 28 03/25/17 19:00 93 Nasal Cannula 2.0 03/25/17 16:00 98.1 67 19 119/86 97 Room Air 03/25/17 16:00 91 03/25/17 12:00 88 03/25/17 12:00 97.9 81 20 124/95 94 Nasal Cannula 2.0 03/25/17 09:45 86 125/93 03/25/17 08:00 89 03/25/17 08:00 97.7 86 20 125/93 95 03/25/17 07:30 97 Bi-pap 35 03/25/17 07:30 Nasal Cannula 2.0 28 03/25/17 05:25 91 19 99 Facial 35 03/25/17 04:00 35 03/25/17 04:00 91 03/25/17 04:00 97.0 81 20 138/96 99 03/25/17 03:13 88 21 99 Facial 35 03/25/17 01:03 91 22 99 Facial 35 03/25/17 00:00 99 03/25/17 00:00 35 03/25/17 00:00 97.0 81 20 117/76 93 Intake and Output 03/24/17 03/25/17 19:00 07:00 Intake Total 360 ml 220 ml Output Total 400 ml 1375 ml Balance -40 ml -1155 ml Intake Oral 360 ml IV Total 220 ml Output Urine Total 400 ml 1375 ml # Voids 4 Microbiology Date/Time Source Procedure Growth Status 03/24/17 15:00 Urine,Clean Catch Urine Culture - Preliminary Resulted ALICE ABARCA Mar 25, 2017 23:27
[2017-03-26 04:11] VITALS: BP 117/76
[2017-03-26] MEDS: ceFAZolin sod 1 GM in NS 55 ML IVPB SCH ×3 (05:12→22:35)
--- NOTE | 2017-03-26 07:46 | Consultation ---
DATE OF CONSULTATION: 03/25/2017 CARDIOLOGY CONSULTATION CONSULTING PHYSICIAN: Fede Hood M.D. ATTENDING/REFERRING PHYSICIAN: Phan Johnson M.D. REASON FOR CONSULTATION: Management of atrial fibrillation. HISTORY OF PRESENT ILLNESS: The patient is a very unfortunate 71-year-old gentleman, who is transferred from long term facility for management and evaluation of seizure activity. The patient apparently sustained an intracranial hemorrhage in [place] in 2015. The patient was started on Keppra for seizure disorder. Recently, Keppra was changed and Depakote and Vimpat was added to the regimen. At the time of arrival to the emergency department, a 12-lead electrocardiogram was significant for atrial fibrillation. Cardiology consultation was made at the request of Dr. Johnson for evaluation and management of this condition. According to the , the patient has history of atrial fibrillation in the past and is on metoprolol for rate control. PAST MEDICAL HISTORY: 1. Craniotomy for hemorrhagic stroke. 2. History of seizure disorder. 3. History of permanent atrial fibrillation. 4. COPD/asthma. 5. History of hypercholesterolemia. PAST SURGICAL HISTORY: Craniotomy. MEDICATIONS: List of medication at the nursing facility includes acetomorphine 650 mg q.6 h. p.r.n. headache and temperature above 101 degrees, amantadine 100 mg p.o. twice daily, aspirin 325 mg p.o. daily, Dulcolax 10 mg rectal once daily, Lexapro 10 mg p.o. daily, famotidine 20 mg p.o. twice daily, gabapentin 200 mg p.o. twice daily, heparin subcutaneous 5000 units q.12 h., Keppra 1000 mg twice daily, lidocaine patch as needed, lisinopril 5 mg p.o. daily, melatonin mg oral p.r.n. insomnia, Lopressor/hydrochlorothiazide 50/25 one tablet daily, Zofran 4 mg p.o. q.8 h., Seroquel 25 mg p.o. daily, Crestor 20 mg p.o. nightly, and temazepam 7.5 mg p.o. nightly. ALLERGIES: No known drug allergies. SOCIAL HISTORY: He is a resident of a long term facility, probably his rehab center. There is no prior history of tobacco, alcohol, or illicit drug use. FAMILY HISTORY: No premature coronary artery disease in first-degree relatives. REVIEW OF SYSTEMS: HEENT: Denies any headache, diplopia, or blurred vision CONSTITUTIONAL: Denies any fever, chills, night sweats, or weight loss. CARDIOVASCULAR: Denies any chest pain, shortness of breath, PND, orthopnea, or leg swelling. PULMONARY: Denies any cough, hemoptysis, or wheezing. GASTROINTESTINAL: Denies any nausea, vomiting, diarrhea, constipation, abdominal pain, or GI bleed. GENITOURINARY: Denies any hematuria, dysuria, or incontinence. NEUROLOGIC: He had some seizure activity. Denies any signs of lateralization, syncope, motor dysfunction, sensory deficit, or altered speech. PHYSICAL EXAMINATION: GENERAL: The patient is a very pleasant 71-year-old gentleman, who is chronically ill-looking, in no apparent respiratory distress. VITAL SIGNS: 06:09 blood pressure was 132/91, respirations 20, pulse of 94, temperature 98.4 degrees Fahrenheit, and O2 saturation 97% on room air. HEENT: Atraumatic, normocephalic. Pupils are equal, round, and reactive to light and accommodation. Extraocular movements are intact. NECK: JVP less than 5 cm. No carotid bruits. Carotid upstrokes 2+ bilaterally. CARDIOVASCULAR: Normal S1 and S2. Irregularly irregular rhythm. No murmurs, gallops, or rubs. PMI is at fourth intercostal space in the midclavicular line. LUNGS: Clear to auscultation bilaterally. ABDOMEN: Soft, nontender, and nondistended. No hepatosplenomegaly. Positive bowel sounds. EXTREMITIES: No evidence of edema, clubbing, or cyanosis. LABORATORY AND DIAGNOSTIC DATA: WBC 7.5, hemoglobin 13.2, hematocrit 40.1, and platelet count 160,000. Sodium 146, potassium 4.1, chloride 108, bicarbonate 33, BUN of 19, creatinine 1.2, and glucose is 100. Calcium is 9.0. Troponin I x2 negative. A 12-lead electrocardiogram showed atrial fibrillation with no acute ischemic changes. Chest x-ray, significant for old granulomatous changes, normal heart sounds, elongated aorta, but no acute pulmonary edema or congestive heart failure. ASSESSMENT AND PLAN: The patient is a very pleasant 71-year-old gentleman, seen in Cardiology consultation at request of Dr. Johnson. 1. Permanent atrial fibrillation with somewhat rapid ventricular response. Metoprolol tartrate has been increased to 50 mg twice daily. The patient is to continue hydration. Anticoagulation is not suggested in presence of prior hemorrhagic stroke. 2. Hyperlipidemia. 3. History of seizure disorder. I would like to obtain 2D echocardiography to assess left ventricular systolic and diastolic function. I would like to thank, Dr. Johnson, for allowing me to participate in the care of this patient. Fede Hood M.D. DR: GREGG JOB#: [id number] CC:
[2017-03-26] MEDS: Enoxaparin 40mg Inj SUBQ SCH (09:00)
--- NOTE | 2017-03-26 09:25 | General Progress Note ---
Assessment/Plan Status: stable Assessment/Plan 1. Acute on chronic seizure disorder. 2. Cerebrovascular accident with left-sided hemiplegia. 3. Dementia, agitated type. 4. Hypernatremia. 5. Anemia. 6. Atrial fibrillation, uncontrolled rhythm. 7. Intracerebral hemorrhage, status post craniotomy - history of. 8. Gastrointestinal and deep vein thrombosis prophylaxis. 9. hematuria Plan: Notes from Neuro, Cardio, Urology ( Dr Ann ) are reviewed Ok to continue anti Platele treatment. No Full anticoagulation will assess possibility of continuation of ARU Subjective ROS Limited/Unobtainable: No Constitutional: Reports: malaise Allergies: Coded Allergies: No Known Allergies (Unverified , 03/23/17) Objective Last 24 Hour Vital Signs Date Time Temp Pulse Resp B/P (MAP) Pulse Ox O2 Delivery O2 Flow Rate FiO2 03/26/17 08:29 93 Room Air 21 03/26/17 08:29 Room Air 21 03/26/17 04:34 2.0 03/26/17 04:11 97.6 85 18 117/76 97 Room Air 03/26/17 04:00 82 03/26/17 00:00 82 03/25/17 23:07 98.2 89 19 110/70 95 Room Air 03/25/17 21:55 91 119/86 03/25/17 20:00 92 03/25/17 19:00 Nasal Cannula 2.0 28 03/25/17 19:00 93 Nasal Cannula 2.0 03/25/17 16:00 98.1 67 19 119/86 97 Room Air 03/25/17 16:00 91 03/25/17 12:00 88 03/25/17 12:00 97.9 81 20 124/95 94 Nasal Cannula 2.0 03/25/17 09:45 86 125/93 Intake and Output 03/25/17 03/26/17 19:00 07:00 Intake Total 360 ml Output Total 1800 ml 500 ml Balance -1440 ml -500 ml Intake Oral 360 ml Output Urine Total 1800 ml 500 ml Height (Feet): 6 Weight (Pounds): 167 General Appearance: no apparent distress EENT: PERRL/EOMI Neck: supple Cardiovascular: normal rate Respiratory/Chest: lungs clear Abdomen: soft Extremities: other - left sided hemiplegia Neurologic: spring up supervisor II-XII grossly normal, other - demented Phan Johnson MD Mar 26, 2017 09:25
[2017-03-26] MEDS: Lacosamide 100 MG TABLET ORAL SCH (10:19)
[2017-03-26] MEDS: Metoprolol Tartrate 50mg tab ORAL SCH ×2 (10:20→20:48)
[2017-03-26] MEDS: Amantadine 100mg cap ORAL SCH ×2 (10:20→17:35)
[2017-03-26] MEDS: Valproic Acid 250mg/5ml Liquid NG SCH ×2 (10:31→20:47)
--- NOTE | 2017-03-26 11:45 | Neurology Progress Note ---
Interim History Interim History ROS Limited/Unobtainable: No Complaints: i am ok Events: drowsy day time less agitation, no sz noted Objective Physical Exam Last Vital Signs Date Time Temp Pulse Resp B/P (MAP) Pulse Ox O2 Delivery O2 Flow Rate FiO2 03/26/17 10:20 85 117/76 03/26/17 08:29 93 Room Air 21 03/26/17 04:34 2.0 03/26/17 04:11 97.6 18 General: well developed, well nourished, no acute distress, other Head: normocophalic, other - post op scars Neck: other Neurologic Exam Mental Status: awake, other - ox 2, confused slow responces Speech: normal speech Language: other - wordfinding difficulty Cranial Nerve II: visual eubanks, no papilledema Cranial Nerves III, IV, : PERRLA, pupils, other - vertical gaze limitation Cranial Nerve V: normal facial sensations Cranial Nerve VII: normal facial expressions Cranial Nerve VIII: normal hearing, no nystagmus Cranial Nerve IX: normal palate elevation, gag response Cranial Nerve X: no voice hoarseness Cranial Nerve XI: SCM symmetric, trapezii function normal Cranial Nerve XII: tongue midline, no tongue atrophy/fasciculations Motor System: no muscle wasting, other - L hemiparesis, rigidity Sensory: other - PP loss on Left side Coordination: other Deep Tendon Reflexes: 0 bicep (L), 0 bicep (R), 0 tricep (L), 0 tricep (R), 0 brachioradialis (L), 0 brachioradialis (R), 0 knee (L), 0 knee (R), 0 ankle (L) , 0 ankle (R) Reflexes: extensor plantar (L), mute plantar (R) Impression/Recommendations Problems: (1) Seizure as late effect of cerebrovascular accident (CVA) Status: doing well, stable Recommendations #[id number] cont depacote 500mg bid reduce Vimpat keppra 500mg bid d/w family d/w psych GRICELDA BOND Mar 26, 2017 11:45
--- NOTE | 2017-03-26 14:03 | Diagnostic Imaging Report ---
Indication: Altered mental status Technique: MRI the brain performed utilizing T1 sagittal, T2 axial, T1 FLAIR axial, T2 FLAIR axial, T2*GRE and diffusion axial images without gadolinium. Comparison: CT head 03/23/2017 Findings: There is restriction of diffusion with corresponding signal dropout on ADC involving residual of the right child radiata compatible with areas of acute ischemia. There is encephalomalacia in the right basal ganglia and right frontal lobe compatible with area of remote infarction. Hemosiderin deposition is noted within this area on GRE. The sulci, ventricles and cisterns are prominent consistent with atrophy. There is extensive, confluent periventricular and supratentorial white matter T2 hyperintensity without mass effect. There is no shift of midline structures. No significant extra-axial collections of fluid or blood are demonstrated. Expected signal flow voids are seen of the vessels of the skull base. There is prior right frontal craniotomy. Mastoid air cells are clear. There is near complete opacification of the right maxillary sinus and opacification of multiple right-sided ethmoid air cells. The known fracture deformity of the lamina papyracea on the right is better seen on concurrent CT. IMPRESSION: Focus of abnormally restricted diffusion with corresponding dropout on ADC in the region of the residual right child radiata/right frontal lobe compatible with area of acute ischemia. This is adjacent to the area of encephalomalacia from the prior chronic left MCA territory infarct. Atrophy and sequale of chronic microvascular ischemia. Extensive right sided paranasal sinus disease. Bony changes including prior right-sided craniotomy and chronic fracture deformity of the right lamina papyracea better appreciated on prior CT. Findings were discussed with patient's treating nurse on 2E via telephone conversation at approximately 13:30 on 03/26/2017.
[2017-03-26] MEDS ORDERED: NS 275ml ONE (17:11)
[2017-03-26] MEDS ORDERED: Tubing IV Secondary IV ONE (17:11)
--- NOTE | 2017-03-26 17:45 | Cardiology Progress Note ---
Assessment/Plan Assessment/Plan 1. Permanent atrial fibrillation with somewhat rapid ventricular response, continue metoprolol tartrate at the current dose. Anticoagulation is not recommended in this patient with history of prior hemorrhagic stroke. 2. Hyperlipidemia. 3. History of seizure disorder. Subjective Subjective Atrial fibrillation at 89. Objective Last 24 Hour Vital Signs Date Time Temp Pulse Resp B/P (MAP) Pulse Ox O2 Delivery O2 Flow Rate FiO2 03/26/17 12:00 91 03/26/17 10:20 85 117/76 03/26/17 08:29 93 Room Air 21 03/26/17 08:29 Room Air 21 03/26/17 08:00 79 03/26/17 04:34 2.0 03/26/17 04:11 97.6 85 18 117/76 97 Room Air 03/26/17 04:00 82 03/26/17 00:00 82 03/25/17 23:07 98.2 89 19 110/70 95 Room Air 03/25/17 21:55 91 119/86 03/25/17 20:00 92 03/25/17 19:00 Nasal Cannula 2.0 28 03/25/17 19:00 93 Nasal Cannula 2.0 Intake and Output 03/25/17 03/26/17 19:00 07:00 Intake Total 360 ml Output Total 1800 ml 500 ml Balance -1440 ml -500 ml Intake Oral 360 ml Output Urine Total 1800 ml 500 ml Laboratory Tests Test 03/26/17 12:00 Valproic Acid (Depakene) Level 59 MCG/ML (50-100) Microbiology Date/Time Source Procedure Growth Status 03/24/17 00:55 Nasal Nares MRSA Culture - Final NO METHICILLIN RESISTANT STAPH AUREUS... Complete 03/24/17 15:00 Urine,Clean Catch Urine Culture - Preliminary Mixed Gram Positive Organism Resulted 03/24/17 00:55 Rectum VRE Culture - Final Enterococcus Faecalis - Vre Complete Objective HEENT: Atraumatic, normocephalic. Pupils are equal, round, and reactive to light and accommodation. Extraocular movements are intact. NECK: JVP less than 5 cm. No carotid bruits. Carotid upstrokes 2+ bilaterally. CARDIOVASCULAR: Normal S1 and S2. Irregularly irregular rhythm. No murmurs, gallops, or rubs. PMI is at fourth intercostal space in the midclavicular line. LUNGS: Clear to auscultation bilaterally. ABDOMEN: Soft, nontender, and nondistended. No hepatosplenomegaly. Positive bowel sounds. EXTREMITIES: No evidence of edema, clubbing, or cyanosis. ALICE ABARCA Mar 26, 2017 17:45
[2017-03-26 20:00] VITALS: BP 113/84
[2017-03-26] MEDS: Lacosamide 50mg tablet ORAL SCH (20:44)
[2017-03-26] MEDS: ROSUVASTATIN 10 MG ORAL SCH (20:47)
[2017-03-27] VITALS: BP 125/86
--- NOTE | 2017-03-27 01:29 | Consultation ---
History of Present Illness General Date patient seen: Mar 24, 2017 Chief Complaint: Seizure Referring physician: dr Johnson Reason for Consultation: JAEL/CPAP management Present Illness HPI 71-year-old gentleman, who is transferred from snf facility for management and evaluation of seizure activity. the pt is up all night and gets agiated. at bedside Allergies: Coded Allergies: No Known Allergies (Unverified , 03/23/17) Medication History Scheduled Amantadine Hcl* (Amantadine*), 100 MG ORAL TWICE A DAY, (Reported) Aspirin* (Aspirin*), 325 MG ORAL DAILY, (Reported) Bisacodyl* (Dulcolax*), 10 MG RC ONCE, (Reported) Escitalopram Oxalate* (Lexapro*), 10 MG ORAL DAILY, (Reported) Famotidine (Famotidine), 20 MG ORAL TWICE A DAY, (Reported) Gabapentin* (Gabapentin*), 200 MG ORAL BID, (Reported) Heparin Sod (Porcine) (Heparin Sodium*), 5,000 UNITS SUBQ EVERY 12 HOURS, ( Reported) Levetiracetam (Keppra), 1,000 MG ORAL TWICE A DAY, (Reported) Lisinopril (Lisinopril*), 5 MG ORAL DAILY, (Reported) Metoprolol/Hydrochlorothiazide (Lopressor Hct 50-25 Tablet), 1 TAB ORAL DAILY, ( Reported) Ondansetron Hcl (Zofran), 4 MG ORAL Q8HR, (Reported) Quetiapine Fumarate* (Seroquel*), 25 MG ORAL DAILY, (Reported) Rosuvastatin Calcium* (Crestor*), 20 MG ORAL DAILY, (Reported) Temazepam (Temazepam*), 7.5 MG ORAL BEDTIME, (Reported) Scheduled PRN Acetaminophen (Acetaminophen), 650 MG ORAL Q6H PRN for Prn Headache/Temp > 101, (Reported) Melatonin (Melatonin), 105 MG ORAL BEDTIME PRN for Insomnia, (Reported) Miscellaneous Medications Lidocaine (Lidocaine), 700 MG TP, (Reported) Sennosides (Senna), Unknown Dose PO, (Reported) Patient History History Provided By: Patient, Medical Record Healthcare decision maker Resuscitation status Full Code Advanced Directive on File No Review of Systems Psychiatric: Reports: prior hx, anxiety, depressed feelings Physical Exam General Appearance: no apparent distress, alert Neurologic: alert, oriented x 3, responsive, depressed affect Last 24 Hour Vital Signs Date Time Temp Pulse Resp B/P (MAP) Pulse Ox O2 Delivery O2 Flow Rate FiO2 03/27/17 00:00 99 03/27/17 00:00 97.0 84 20 125/86 98 03/26/17 23:30 71 19 98 Facial 35 03/26/17 21:35 78 16 99 Facial 35 03/26/17 20:48 86 113/84 03/26/17 20:00 97.0 86 20 113/84 96 03/26/17 20:00 96 03/26/17 19:30 98 Room Air 21 03/26/17 19:30 Room Air 21 03/26/17 16:00 90 03/26/17 12:00 91 03/26/17 10:20 85 117/76 03/26/17 08:29 93 Room Air 21 03/26/17 08:29 Room Air 21 03/26/17 08:00 79 03/26/17 04:34 2.0 03/26/17 04:11 97.6 85 18 117/76 97 Room Air 03/26/17 04:00 82 Intake and Output 03/26/17 03/27/17 19:00 07:00 Intake Total 170 ml Balance 170 ml Intake Oral 170 ml # Voids 2 Laboratory Tests Test 03/26/17 12:00 Valproic Acid (Depakene) Level 59 MCG/ML (50-100) Height (Feet): 6 Weight (Pounds): 167 Medications Current Medications Medications (Trade) Dose Ordered Sig/Roseanna Route PRN Reason Start Time Stop Time Status Last Admin Dose Admin Acetaminophen (Tylenol) 650 mg Q6H PRN ORAL Mild Pain/Temp > 100.5 03/24/17 03:15 04/23/17 03:14 03/26/17 20:43 Amantadine HCl (Symmetrel) 100 mg TWICE A DAY ORAL 03/24/17 09:00 04/23/17 08:59 03/26/17 17:35 Aspirin (ASA) 325 mg DAILY ORAL 03/24/17 09:00 04/23/17 08:59 Bisacodyl (Dulcolax) 10 mg DAILYPRN PRN RECTAL Constipation 03/24/17 03:15 04/23/17 03:14 Cefazolin Sodium 1 gm/Sodium Chloride 55 ml @ 110 mls/hr Q8HR IVPB 03/24/17 14:00 03/31/17 13:59 03/26/17 22:35 Enoxaparin Sodium (Lovenox) 40 mg DAILY SUBQ 03/24/17 10:00 04/23/17 09:59 Famotidine (Pepcid) 20 mg BID ORAL 03/24/17 09:00 04/23/17 08:59 03/26/17 17:35 Hydrochlorothiazide (Hydrodiuril) 25 mg DAILY ORAL 03/24/17 09:00 04/23/17 08:59 03/26/17 10:19 Lacosamide (Vimpat) 50 mg Q12HR ORAL 03/26/17 21:00 04/25/17 20:59 03/26/17 20:44 Levetiracetam (Keppra) 500 mg Q12HR ORAL 03/24/17 21:00 04/23/17 20:59 03/26/17 20:44 Lidocaine (Lidoderm 5% PATCH) 1 patch DAILY TDERMAL 03/24/17 09:00 04/23/17 08:59 03/25/17 17:05 Lorazepam (Ativan 2mg/ml 1ml) 1 mg PRN PRN IV For Seizures 03/24/17 03:45 03/31/17 03:14 Metoprolol Tartrate (Lopressor) 50 mg Q12HR ORAL 03/24/17 21:00 04/23/17 20:59 03/26/17 20:48 Ondansetron HCl (Zofran) 4 mg Q6H PRN IVP Nausea & Vomiting 03/24/17 03:15 04/23/17 03:14 Patient Own Medication (Patient's Own Med) 1 ea QHS ORAL 03/26/17 21:00 04/25/17 20:59 03/26/17 20:47 Quetiapine Fumarate (SEROquel) 50 mg DAILY PRN ORAL Agitation 03/24/17 06:15 04/23/17 06:14 03/25/17 18:47 Quetiapine Fumarate (SEROquel) 100 mg Q12HR ORAL 03/26/17 09:00 04/25/17 08:59 03/26/17 20:43 Sennosides (Senokot) 1 tab DAILY PRN ORAL Constipation 03/24/17 03:30 04/23/17 03:29 Valproic Acid (Depakene) 500 mg EVERY 12 HOURS NG 03/26/17 10:30 04/25/17 10:29 03/26/17 20:47 Assessment/Plan Status: stable Assessment/Plan agitation serdalyl Darryl Wright M.D. Mar 27, 2017 01:29
--- NOTE | 2017-03-27 01:29 | General Progress Note ---
Assessment/Plan Status: stable, progressing Subjective Date patient seen: Mar 25, 2017 Neurologic/Psychiatric: Reports: anxiety, depressed, emotional problems Allergies: Coded Allergies: No Known Allergies (Unverified , 03/23/17) Objective Last 24 Hour Vital Signs Date Time Temp Pulse Resp B/P (MAP) Pulse Ox O2 Delivery O2 Flow Rate FiO2 03/27/17 00:00 99 03/27/17 00:00 97.0 84 20 125/86 98 03/26/17 23:30 71 19 98 Facial 35 03/26/17 21:35 78 16 99 Facial 35 03/26/17 20:48 86 113/84 03/26/17 20:00 97.0 86 20 113/84 96 03/26/17 20:00 96 03/26/17 19:30 98 Room Air 21 03/26/17 19:30 Room Air 21 03/26/17 16:00 90 03/26/17 12:00 91 03/26/17 10:20 85 117/76 03/26/17 08:29 93 Room Air 03/26/17 08:29 Room Air 21 03/26/17 08:00 79 03/26/17 04:34 2.0 03/26/17 04:11 97.6 85 18 117/76 97 Room Air 03/26/17 04:00 82 Intake and Output 03/26/17 03/27/17 19:00 07:00 Intake Total 170 ml Balance 170 ml Intake Oral 170 ml # Voids 2 Laboratory Tests 03/26/17 12:00: Valproic Acid (Depakene) Level 59 Height (Feet): 6 Weight (Pounds): 167 General Appearance: no apparent distress, alert, agitated Neurologic: alert, oriented x 3, responsive Darryl Light M.D. Mar 27, 2017 01:29
[2017-03-27 04:00] VITALS: BP 115/76
[2017-03-27] MEDS: ceFAZolin sod 1 GM in NS 55 ML IVPB SCH ×3 (06:16→20:43)
[2017-03-27 08:39] LABS: BASOPHILS % (AUTO) 0.9 % (0.0-2.0); EOSINOPHILS % (AUTO) 3.2 % (0.0-3.0); HEMATOCRIT 44.1 % (42.0-52.0); HEMOGLOBIN 14.5 G/DL (14.2-18.0); LYMPHOCYTES % (AUTO) 39.7 % (20.0-45.0); MEAN CORPUSCULAR VOLUME 92 FL (80-99); NEUTROPHILS % (AUTO) 47.3 % (45.0-75.0); PLATELET COUNT 175 K/UL (150-450); RED CELL DISTRIBUTION WIDTH 12.5 % (11.6-14.8); WHITE BLOOD COUNT 7.9 K/UL (4.8-10.8)
[2017-03-27 08:47] LABS: ALANINE AMINOTRANSFERASE 19 U/L (12-78); ALBUMIN 3.5 G/DL (3.4-5.0); ALBUMIN/GLOBULIN RATIO 0.9 (1.0-2.7); ALKALINE PHOSPHATASE 100 U/L (46-116); ANION GAP 8 mmol/L (5-15); ASPARTATE AMINO TRANSFERASE 18 U/L (15-37); BILIRUBIN,TOTAL 0.5 MG/DL (0.2-1.0); BLOOD UREA NITROGEN 24 mg/dL (7-18); CALCIUM 9.5 MG/DL (8.5-10.1); CARBON DIOXIDE 31 MMOL/L (21-32); CHLORIDE 103 MMOL/L (98-107); CREATININE 1.1 MG/DL (0.55-1.30); POTASSIUM 4.1 MMOL/L (3.5-5.1); SODIUM 142 MMOL/L (136-145)
[2017-03-27] MEDS: Enoxaparin 40mg Inj SUBQ SCH (09:00)
[2017-03-27] MEDS: Lacosamide 50mg tablet ORAL SCH ×2 (10:16→20:40)
[2017-03-27] MEDS: Metoprolol Tartrate 50mg tab ORAL SCH ×2 (10:16→20:42)
[2017-03-27] MEDS: Amantadine 100mg cap ORAL SCH ×2 (10:17→17:18)
--- NOTE | 2017-03-27 11:03 | Pulmonology Progress Note ---
Assessment/Plan Problems: (1) At high risk for aspiration (2) Uncontrolled seizures (3) Seizure as late effect of cerebrovascular accident (CVA) Assessment/Plan swallow study check electrolytes controlled afib titrate cardiac meds/ dvt prophylaxis. Subjective ROS Limited/Unobtainable: No Allergies: Coded Allergies: No Known Allergies (Unverified , 03/23/17) Objective Last 24 Hour Vital Signs Date Time Temp Pulse Resp B/P (MAP) Pulse Ox O2 Delivery O2 Flow Rate FiO2 03/27/17 10:16 86 115/76 03/27/17 04:00 86 03/27/17 04:00 97.0 61 20 115/76 98 03/27/17 03:30 70 14 100 Facial 35 03/27/17 01:30 74 18 99 Facial 35 03/27/17 00:00 99 03/27/17 00:00 97.0 84 20 125/86 98 03/26/17 23:30 71 19 98 Facial 35 03/26/17 21:35 78 16 99 Facial 35 03/26/17 20:48 86 113/84 03/26/17 20:00 97.0 86 20 113/84 96 03/26/17 20:00 96 03/26/17 19:30 98 Room Air 21 03/26/17 19:30 Room Air 21 03/26/17 16:00 90 03/26/17 12:00 91 Intake and Output 03/26/17 03/27/17 19:00 07:00 Intake Total 170 ml Output Total 600 ml Balance 170 ml -600 ml Intake Oral 170 ml Output Urine Total 600 ml # Voids 2 General Appearance: cachetic HEENT: normocephalic, atraumatic Respiratory/Chest: chest wall non-tender, lungs clear Cardiovascular: normal peripheral pulses, normal rate Abdomen: normal bowel sounds, soft, non tender Genitourinary: normal external genitalia Extremities: no clubbing 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, no motor/sensory deficits Lymphatic: no neck adenopathy Musculoskeletal: normal muscle bulk Microbiology Date/Time Source Procedure Growth Status 03/24/17 15:00 Urine,Clean Catch Urine Culture - Final Mixed Gram Positive Organism Complete Laboratory Tests 03/26/17 12:00: Valproic Acid (Depakene) Level 59 03/27/17 07:30: White Blood Count 7.9, Red Blood Count 4.80, Hemoglobin 14.5, Hematocrit 44.1, Mean Corpuscular Volume 92, Mean Corpuscular Hemoglobin 30.1, Mean Corpuscular Hemoglobin Concent 32.8, Red Cell Distribution Width 12.5, Platelet Count 175, Mean Platelet Volume 9.2, Neutrophils (%) (Auto) 47.3, Lymphocytes (%) (Auto) 39.7, Monocytes (%) (Auto) 9.0, Eosinophils (%) (Auto) 3.2H, Basophils (%) (Auto ) 0.9, Sodium Level 142, Potassium Level 4.1, Chloride Level 103, Carbon Dioxide Level 31, Anion Gap 8, Blood Urea Nitrogen 24H, Creatinine 1.1, Estimat Glomerular Filtration Rate , Glucose Level 84, Calcium Level 9.5, Total Bilirubin 0.5, Aspartate Amino Transf (AST/SGOT) 18, Alanine Aminotransferase ( ALT/SGPT) 19, Alkaline Phosphatase 100, Total Protein 7.5, Albumin 3.5, Globulin 4.0, Albumin/Globulin Ratio 0.9L Current Medications Medications (Trade) Dose Ordered Sig/Roseanna Route PRN Reason Start Time Stop Time Status Last Admin Dose Admin Acetaminophen (Tylenol) 650 mg Q6H PRN ORAL Mild Pain/Temp > 100.5 03/24/17 03:15 04/23/17 03:14 03/26/17 20:43 Amantadine HCl (Symmetrel) 100 mg TWICE A DAY ORAL 03/24/17 09:00 04/23/17 08:59 03/27/17 10:17 Aspirin (ASA) 325 mg DAILY ORAL 03/24/17 09:00 04/23/17 08:59 Bisacodyl (Dulcolax) 10 mg DAILYPRN PRN RECTAL Constipation 03/24/17 03:15 04/23/17 03:14 Cefazolin Sodium 1 gm/Sodium Chloride 55 ml @ 110 mls/hr Q8HR IVPB 03/24/17 14:00 03/31/17 13:59 03/27/17 06:16 Divalproex Sodium (Depakote ER) 1,000 mg BEDTIME ORAL 03/27/17 21:00 04/26/17 20:59 Enoxaparin Sodium (Lovenox) 40 mg DAILY SUBQ 03/24/17 10:00 04/23/17 09:59 Famotidine (Pepcid) 20 mg BID ORAL 03/24/17 09:00 04/23/17 08:59 03/27/17 10:16 Hydrochlorothiazide (Hydrodiuril) 25 mg DAILY ORAL 03/24/17 09:00 04/23/17 08:59 03/27/17 10:16 Lacosamide (Vimpat) 50 mg Q12HR ORAL 03/26/17 21:00 04/25/17 20:59 03/27/17 10:16 Levetiracetam (Keppra) 500 mg Q12HR ORAL 03/24/17 21:00 04/23/17 20:59 03/27/17 10:16 Lidocaine (Lidoderm 5% PATCH) 1 patch DAILY TDERMAL 03/24/17 09:00 04/23/17 08:59 03/27/17 10:17 Lorazepam (Ativan 2mg/ml 1ml) 1 mg PRN PRN IV For Seizures 03/24/17 03:45 03/31/17 03:14 Metoprolol Tartrate (Lopressor) 50 mg Q12HR ORAL 03/24/17 21:00 04/23/17 20:59 03/27/17 10:16 Ondansetron HCl (Zofran) 4 mg Q6H PRN IVP Nausea & Vomiting 03/24/17 03:15 04/23/17 03:14 Patient Own Medication (Patient's Own Med) 1 ea QHS ORAL 03/26/17 21:00 04/25/17 20:59 03/26/17 20:47 Quetiapine Fumarate (SEROquel) 50 mg DAILY PRN ORAL Agitation 03/24/17 06:15 04/23/17 06:14 03/25/17 18:47 Quetiapine Fumarate (SEROquel) 100 mg Q12HR ORAL 03/26/17 09:00 04/25/17 08:59 03/27/17 10:16 Sennosides (Senokot) 1 tab DAILY PRN ORAL Constipation 03/24/17 03:30 04/23/17 03:29 WENDY VELARDE Mar 27, 2017 11:03
--- NOTE | 2017-03-27 13:55 | Neurology Progress Note ---
Interim History Interim History ROS Limited/Unobtainable: No Complaints: drowsy Events: day time less agitation, no sz noted, day time drowsiness Objective Physical Exam Last Vital Signs Date Time Temp Pulse Resp B/P (MAP) Pulse Ox O2 Delivery O2 Flow Rate FiO2 03/27/17 10:16 86 115/76 03/27/17 06:39 98 Room Air 03/27/17 04:00 97.0 20 03/27/17 03:30 35 03/26/17 04:34 2.0 Laboratory Tests Test 03/27/17 07:30 White Blood Count 7.9 K/UL (4.8-10.8) Red Blood Count 4.80 M/UL (4.70-6.10) Hemoglobin 14.5 G/DL (14.2-18.0) Hematocrit 44.1 % (42.0-52.0) Mean Corpuscular Volume 92 FL (80-99) Mean Corpuscular Hemoglobin 30.1 PG (27.0-31.0) Mean Corpuscular Hemoglobin Concent 32.8 G/DL (32.0-36.0) Red Cell Distribution Width 12.5 % (11.6-14.8) Platelet Count 175 K/UL (150-450) Mean Platelet Volume 9.2 FL (6.5-10.1) Neutrophils (%) (Auto) 47.3 % (45.0-75.0) Lymphocytes (%) (Auto) 39.7 % (20.0-45.0) Monocytes (%) (Auto) 9.0 % (1.0-10.0) Eosinophils (%) (Auto) 3.2 % (0.0-3.0) H Basophils (%) (Auto) 0.9 % (0.0-2.0) Sodium Level 142 MMOL/L (136-145) Potassium Level 4.1 MMOL/L (3.5-5.1) Chloride Level 103 MMOL/L (98-107) Carbon Dioxide Level 31 MMOL/L (21-32) Anion Gap 8 mmol/L (5-15) Blood Urea Nitrogen 24 mg/dL (7-18) H Creatinine 1.1 MG/DL (0.55-1.30) Estimat Glomerular Filtration Rate mL/min (>60) Glucose Level 84 MG/DL (74-106) Calcium Level 9.5 MG/DL (8.5-10.1) Total Bilirubin 0.5 MG/DL (0.2-1.0) Aspartate Amino Transf (AST/SGOT) 18 U/L (15-37) Alanine Aminotransferase (ALT/SGPT) 19 U/L (12-78) Alkaline Phosphatase 100 U/L (46-116) Total Protein 7.5 G/DL (6.4-8.2) Albumin 3.5 G/DL (3.4-5.0) Globulin 4.0 g/dL Albumin/Globulin Ratio 0.9 (1.0-2.7) L General: well developed, well nourished, no acute distress, other Head: normocophalic, other - post op scars Neck: other Neurologic Exam Mental Status: awake, other - ox 2, confused slow responces Speech: normal speech Language: other - wordfinding difficulty Cranial Nerve II: visual eubanks, no papilledema Cranial Nerves III, IV, : PERRLA, pupils, other - vertical gaze limitation Cranial Nerve V: normal facial sensations Cranial Nerve VII: normal facial expressions Cranial Nerve VIII: normal hearing, no nystagmus Cranial Nerve IX: normal palate elevation, gag response Cranial Nerve X: no voice hoarseness Cranial Nerve XI: SCM symmetric, trapezii function normal Cranial Nerve XII: tongue midline, no tongue atrophy/fasciculations Motor System: no muscle wasting, other - L hemiparesis, rigidity Sensory: other - PP loss on Left side Coordination: other Deep Tendon Reflexes: 0 bicep (L), 0 bicep (R), 0 tricep (L), 0 tricep (R), 0 brachioradialis (L), 0 brachioradialis (R), 0 knee (L), 0 knee (R), 0 ankle (L) , 0 ankle (R) Reflexes: extensor plantar (L), mute plantar (R) Impression/Recommendations Problems: (1) Acute ischemic right MCA stroke (2) Seizure as late effect of cerebrovascular accident (CVA) (3) At high risk for aspiration Status: stable, progressing Recommendations #[id number] cont depacote 500mg bid reduce [id number] bid keppra 500mg bid d/w family Acute rehab cont asa/statins GRICELDA BOND Mar 27, 2017 13:55
--- NOTE | 2017-03-27 15:54 | General Progress Note ---
Assessment/Plan Status: stable Assessment/Plan 1. Acute on chronic seizure disorder. 2. Cerebrovascular accident with left-sided hemiplegia. 3. Dementia, agitated type. 4. Hypernatremia. 5. Anemia. 6. Atrial fibrillation, uncontrolled rhythm. 7. Intracerebral hemorrhage, status post craniotomy - history of. 8. Gastrointestinal and deep vein thrombosis prophylaxis. 9. hematuria Plan: Notes from Neuro, Cardio, reviewed Ok to continue anti Platele treatment. No Full anticoagulation will assess possibility of continuation of ARU Subjective ROS Limited/Unobtainable: No Constitutional: Reports: malaise Allergies: Coded Allergies: No Known Allergies (Unverified , 03/23/17) Objective Last 24 Hour Vital Signs Date Time Temp Pulse Resp B/P (MAP) Pulse Ox O2 Delivery O2 Flow Rate FiO2 03/27/17 10:16 86 115/76 03/27/17 06:39 98 Room Air 03/27/17 06:39 Room Air 03/27/17 04:00 86 03/27/17 04:00 97.0 61 20 115/76 98 03/27/17 03:30 70 14 100 Facial 35 03/27/17 01:30 74 18 99 Facial 35 03/27/17 00:00 99 03/27/17 00:00 97.0 84 20 125/86 98 03/26/17 23:30 71 19 98 Facial 35 03/26/17 21:35 78 16 99 Facial 35 03/26/17 20:48 86 113/84 03/26/17 20:00 97.0 86 20 113/84 96 03/26/17 20:00 96 03/26/17 19:30 98 Room Air 21 03/26/17 19:30 Room Air 21 03/26/17 16:00 90 Intake and Output 03/26/17 03/27/17 19:00 07:00 Intake Total 170 ml Output Total 600 ml Balance 170 ml -600 ml Intake Oral 170 ml Output Urine Total 600 ml # Voids 2 Laboratory Tests 03/27/17 07:30: White Blood Count 7.9, Red Blood Count 4.80, Hemoglobin 14.5, Hematocrit 44.1, Mean Corpuscular Volume 92, Mean Corpuscular Hemoglobin 30.1, Mean Corpuscular Hemoglobin Concent 32.8, Red Cell Distribution Width 12.5, Platelet Count 175, Mean Platelet Volume 9.2, Neutrophils (%) (Auto) 47.3, Lymphocytes (%) (Auto) 39.7, Monocytes (%) (Auto) 9.0, Eosinophils (%) (Auto) 3.2H, Basophils (%) (Auto ) 0.9, Sodium Level 142, Potassium Level 4.1, Chloride Level 103, Carbon Dioxide Level 31, Anion Gap 8, Blood Urea Nitrogen 24H, Creatinine 1.1, Estimat Glomerular Filtration Rate , Glucose Level 84, Calcium Level 9.5, Total Bilirubin 0.5, Aspartate Amino Transf (AST/SGOT) 18, Alanine Aminotransferase ( ALT/SGPT) 19, Alkaline Phosphatase 100, Total Protein 7.5, Albumin 3.5, Globulin 4.0, Albumin/Globulin Ratio 0.9L Height (Feet): 6 Weight (Pounds): 167 General Appearance: WD/WN EENT: PERRL/EOMI, other - left side hemiplegia Neck: supple Cardiovascular: normal rate Respiratory/Chest: lungs clear Abdomen: soft Extremities: other - left hemipelgia Neurologic: other - dementia Phan Johnson MD Mar 27, 2017 15:54
--- NOTE | 2017-03-27 16:36 | Cardiology Progress Note ---
Assessment/Plan Assessment/Plan 1. Permanent atrial fibrillation with controlled ventricular response, continue metoprolol tartrate at the current dose. Anticoagulation is not recommended in this patient with history of prior hemorrhagic stroke due to Eliquis. 2. Hyperlipidemia. 3. History of seizure disorder. Subjective Subjective Atrial fibrillation at 86. Objective Last 24 Hour Vital Signs Date Time Temp Pulse Resp B/P (MAP) Pulse Ox O2 Delivery O2 Flow Rate FiO2 03/27/17 10:16 86 115/76 03/27/17 06:39 98 Room Air 03/27/17 06:39 Room Air 03/27/17 04:00 86 03/27/17 04:00 97.0 61 20 115/76 98 03/27/17 03:30 70 14 100 Facial 35 03/27/17 01:30 74 18 99 Facial 35 03/27/17 00:00 99 03/27/17 00:00 97.0 84 20 125/86 98 03/26/17 23:30 71 19 98 Facial 35 03/26/17 21:35 78 16 99 Facial 35 03/26/17 20:48 86 113/84 03/26/17 20:00 97.0 86 20 113/84 96 03/26/17 20:00 96 03/26/17 19:30 98 Room Air 21 03/26/17 19:30 Room Air 21 Intake and Output 03/26/17 03/27/17 19:00 07:00 Intake Total 170 ml Output Total 600 ml Balance 170 ml -600 ml Intake Oral 170 ml Output Urine Total 600 ml # Voids 2 Laboratory Tests Test 03/27/17 07:30 White Blood Count 7.9 K/UL (4.8-10.8) Red Blood Count 4.80 M/UL (4.70-6.10) Hemoglobin 14.5 G/DL (14.2-18.0) Hematocrit 44.1 % (42.0-52.0) Mean Corpuscular Volume 92 FL (80-99) Mean Corpuscular Hemoglobin 30.1 PG (27.0-31.0) Mean Corpuscular Hemoglobin Concent 32.8 G/DL (32.0-36.0) Red Cell Distribution Width 12.5 % (11.6-14.8) Platelet Count 175 K/UL (150-450) Mean Platelet Volume 9.2 FL (6.5-10.1) Neutrophils (%) (Auto) 47.3 % (45.0-75.0) Lymphocytes (%) (Auto) 39.7 % (20.0-45.0) Monocytes (%) (Auto) 9.0 % (1.0-10.0) Eosinophils (%) (Auto) 3.2 % (0.0-3.0) H Basophils (%) (Auto) 0.9 % (0.0-2.0) Sodium Level 142 MMOL/L (136-145) Potassium Level 4.1 MMOL/L (3.5-5.1) Chloride Level 103 MMOL/L (98-107) Carbon Dioxide Level 31 MMOL/L (21-32) Anion Gap 8 mmol/L (5-15) Blood Urea Nitrogen 24 mg/dL (7-18) H Creatinine 1.1 MG/DL (0.55-1.30) Estimat Glomerular Filtration Rate mL/min (>60) Glucose Level 84 MG/DL (74-106) Calcium Level 9.5 MG/DL (8.5-10.1) Total Bilirubin 0.5 MG/DL (0.2-1.0) Aspartate Amino Transf (AST/SGOT) 18 U/L (15-37) Alanine Aminotransferase (ALT/SGPT) 19 U/L (12-78) Alkaline Phosphatase 100 U/L (46-116) Total Protein 7.5 G/DL (6.4-8.2) Albumin 3.5 G/DL (3.4-5.0) Globulin 4.0 g/dL Albumin/Globulin Ratio 0.9 (1.0-2.7) L Objective HEENT: Atraumatic, normocephalic. Pupils are equal, round, and reactive to light and accommodation. Extraocular movements are intact. NECK: JVP less than 5 cm. No carotid bruits. Carotid upstrokes 2+ bilaterally. CARDIOVASCULAR: Normal S1 and S2. Irregularly irregular rhythm. No murmurs, gallops, or rubs. PMI is at fourth intercostal space in the midclavicular line. LUNGS: Clear to auscultation bilaterally. ABDOMEN: Soft, nontender, and nondistended. No hepatosplenomegaly. Positive bowel sounds. EXTREMITIES: No evidence of edema, clubbing, or cyanosis. ALICE ABARCA Mar 27, 2017 16:36
--- NOTE | 2017-03-27 19:52 | General Progress Note ---
Assessment/Plan Problem List: (1) Uncontrolled seizures ICD Codes: R56.9 - Unspecified convulsions SNOMED: 01145916 Qualifiers: Qualified Codes: R56.1 - Post traumatic seizures (2) Seizure as late effect of cerebrovascular accident (CVA) ICD Codes: I69.398 - Other sequelae of cerebral infarction; R56.9 - Unspecified convulsions SNOMED: 529732657848890 Status: not improved, unchanged Assessment/Plan delirium cont seroquel cont depakote Subjective Date patient seen: Mar 27, 2017 Neurologic/Psychiatric: Reports: anxiety, emotional problems Allergies: Coded Allergies: No Known Allergies (Unverified , 03/23/17) Subjective the pt is agitated yelling 'nurse" the pt is unable to provide hx. at bedside. Objective Last 24 Hour Vital Signs Date Time Temp Pulse Resp B/P (MAP) Pulse Ox O2 Delivery O2 Flow Rate FiO2 03/27/17 10:16 86 115/76 03/27/17 06:39 98 Room Air 03/27/17 06:39 Room Air 03/27/17 04:00 86 03/27/17 04:00 97.0 61 20 115/76 98 03/27/17 03:30 70 14 100 Facial 35 03/27/17 01:30 74 18 99 Facial 35 03/27/17 00:00 99 03/27/17 00:00 97.0 84 20 125/86 98 03/26/17 23:30 71 19 98 Facial 35 03/26/17 21:35 78 16 99 Facial 35 03/26/17 20:48 86 113/84 03/26/17 20:00 97.0 86 20 113/84 96 03/26/17 20:00 96 Intake and Output 03/26/17 03/27/17 19:00 07:00 Intake Total 170 ml Output Total 600 ml Balance 170 ml -600 ml Intake Oral 170 ml Output Urine Total 600 ml # Voids 2 Laboratory Tests 03/27/17 07:30: White Blood Count 7.9, Red Blood Count 4.80, Hemoglobin 14.5, Hematocrit 44.1, Mean Corpuscular Volume 92, Mean Corpuscular Hemoglobin 30.1, Mean Corpuscular Hemoglobin Concent 32.8, Red Cell Distribution Width 12.5, Platelet Count 175, Mean Platelet Volume 9.2, Neutrophils (%) (Auto) 47.3, Lymphocytes (%) (Auto) 39.7, Monocytes (%) (Auto) 9.0, Eosinophils (%) (Auto) 3.2H, Basophils (%) (Auto ) 0.9, Sodium Level 142, Potassium Level 4.1, Chloride Level 103, Carbon Dioxide Level 31, Anion Gap 8, Blood Urea Nitrogen 24H, Creatinine 1.1, Estimat Glomerular Filtration Rate , Glucose Level 84, Calcium Level 9.5, Total Bilirubin 0.5, Aspartate Amino Transf (AST/SGOT) 18, Alanine Aminotransferase ( ALT/SGPT) 19, Alkaline Phosphatase 100, Total Protein 7.5, Albumin 3.5, Globulin 4.0, Albumin/Globulin Ratio 0.9L Height (Feet): 6 Weight (Pounds): 167 General Appearance: alert - waxing and waning of conciousness, agitated Neurologic: disoriented, depressed affect Darryl Light M.D. Mar 27, 2017 19:52
[2017-03-27 20:00] VITALS: BP 133/61
[2017-03-27] MEDS: ROSUVASTATIN 10 MG ORAL SCH (20:42)
[2017-03-27] MEDS ORDERED: Depakote ER 500mg tab ORAL SCH (21:00)
[2017-03-28] VITALS: BP 110/78
[2017-03-28 04:00] VITALS: BP 127/64
[2017-03-28] MEDS: ceFAZolin sod 1 GM in NS 55 ML IVPB SCH ×2 (06:31→13:56)
[2017-03-28 07:04] LABS: BASOPHILS % (AUTO) 0.8 % (0.0-2.0); EOSINOPHILS % (AUTO) 2.8 % (0.0-3.0); HEMATOCRIT 43.1 % (42.0-52.0); HEMOGLOBIN 14.5 G/DL (14.2-18.0); MEAN CORPUSCULAR VOLUME 91 FL (80-99); MONOCYTES % (AUTO) 7.8 % (1.0-10.0); NEUTROPHILS % (AUTO) 50.5 % (45.0-75.0); PLATELET COUNT 165 K/UL (150-450); RED BLOOD COUNT 4.76 M/UL (4.70-6.10); RED CELL DISTRIBUTION WIDTH 12.4 % (11.6-14.8)
[2017-03-28 07:40] LABS: ALANINE AMINOTRANSFERASE 21 U/L (12-78); ALBUMIN 3.4 G/DL (3.4-5.0); ALBUMIN/GLOBULIN RATIO 0.9 (1.0-2.7); ALKALINE PHOSPHATASE 93 U/L (46-116); ANION GAP 7 mmol/L (5-15); ASPARTATE AMINO TRANSFERASE 14 U/L (15-37); BILIRUBIN,TOTAL 0.6 MG/DL (0.2-1.0); BLOOD UREA NITROGEN 19 mg/dL (7-18); CALCIUM 9.4 MG/DL (8.5-10.1); CARBON DIOXIDE 36 MMOL/L (21-32); CHLORIDE 102 MMOL/L (98-107); CREATININE 1.2 MG/DL (0.55-1.30); POTASSIUM 3.8 MMOL/L (3.5-5.1); SODIUM 144 MMOL/L (136-145)
[2017-03-28 08:00] VITALS: BP 134/98
[2017-03-28] MEDS: Enoxaparin 40mg Inj SUBQ SCH (09:00)
[2017-03-28] MEDS: Metoprolol Tartrate 50mg tab ORAL SCH (09:16)
[2017-03-28] MEDS: Lacosamide 50mg tablet ORAL SCH (09:16)
[2017-03-28] MEDS: Amantadine 100mg cap ORAL SCH ×2 (09:16→18:39)
--- NOTE | 2017-03-28 10:56 | General Progress Note ---
Assessment/Plan Status: stable Assessment/Plan 1. Acute on chronic seizure disorder. 2. Acute on Chronic Cerebrovascular accident with left-sided hemiplegia. 3. Dementia, agitated type. 4. Hypernatremia. 5. Anemia. 6. Atrial fibrillation, uncontrolled rhythm. 7. Intracerebral hemorrhage, status post craniotomy - history of. 8. Gastrointestinal and deep vein thrombosis prophylaxis. 9. hematuria Plan: Notes from Neuro, Cardio, Psych are reviewed Ok to continue anti Platele treatment. No Full anticoagulation will assess possibility of continuation of treatment in ARU Subjective ROS Limited/Unobtainable: No Constitutional: Reports: malaise HEENT: Reports: no symptoms Cardiovascular: Reports: no symptoms Respiratory: Reports: no symptoms Allergies: Coded Allergies: No Known Allergies (Unverified , 03/23/17) Objective Last 24 Hour Vital Signs Date Time Temp Pulse Resp B/P (MAP) Pulse Ox O2 Delivery O2 Flow Rate FiO2 03/28/17 09:16 82 134/98 03/28/17 08:00 97.0 82 20 134/98 94 Room Air 03/28/17 07:30 95 Room Air 21 03/28/17 07:30 Room Air 21 03/28/17 04:00 97.0 87 18 127/64 95 03/28/17 00:00 97.0 75 18 110/78 93 03/27/17 23:30 71 16 98 Facial 35 03/27/17 20:42 66 133/61 03/27/17 20:00 97.0 66 18 133/61 94 03/27/17 19:58 96 Room Air 21 03/27/17 19:58 Room Air 21 03/27/17 12:00 89 Intake and Output 03/27/17 03/28/17 19:00 07:00 Intake Total 410 ml Output Total 500 ml 600 ml Balance -90 ml -600 ml Intake Oral 300 ml IV Total 110 ml Output Urine Total 500 ml 600 ml Laboratory Tests 03/28/17 06:10: White Blood Count 8.0, Red Blood Count 4.76, Hemoglobin 14.5, Hematocrit 43.1, Mean Corpuscular Volume 91, Mean Corpuscular Hemoglobin 30.4, Mean Corpuscular Hemoglobin Concent 33.5, Red Cell Distribution Width 12.4, Platelet Count 165, Mean Platelet Volume 8.3, Neutrophils (%) (Auto) 50.5, Lymphocytes (%) (Auto) 38.0, Monocytes (%) (Auto) 7.8, Eosinophils (%) (Auto) 2.8, Basophils (%) (Auto ) 0.8, Sodium Level 144, Potassium Level 3.8, Chloride Level 102, Carbon Dioxide Level 36H, Anion Gap 7, Blood Urea Nitrogen 19H, Creatinine 1.2, Estimat Glomerular Filtration Rate , Glucose Level 88, Calcium Level 9.4, Total Bilirubin 0.6, Aspartate Amino Transf (AST/SGOT) 14L, Alanine Aminotransferase ( ALT/SGPT) 21, Alkaline Phosphatase 93, Total Protein 7.0, Albumin 3.4, Globulin 3.6, Albumin/Globulin Ratio 0.9L Height (Feet): 6 Weight (Pounds): 167 General Appearance: no apparent distress EENT: PERRL/EOMI Neck: supple Cardiovascular: normal rate Respiratory/Chest: lungs clear Abdomen: soft Extremities: other - Left sided hemiplegia Neurologic: disoriented, other - dementia Phan Johnson MD Mar 28, 2017 10:56
[2017-03-28 12:00] VITALS: BP 111/68
[2017-03-28 16:00] VITALS: BP 107/70
--- NOTE | 2017-03-28 18:45 | Cardiology Progress Note ---
Assessment/Plan Assessment/Plan 1. Permanent atrial fibrillation with controlled ventricular response, continue metoprolol, anticoagulation is contraindicated given prior hemorrhagic stroke due to Eliquis. 2. Hyperlipidemia. 3. History of seizure disorder. Subjective Subjective Atrial fibrillation at 98. Objective Last 24 Hour Vital Signs Date Time Temp Pulse Resp B/P (MAP) Pulse Ox O2 Delivery O2 Flow Rate FiO2 03/28/17 16:00 97.0 98 20 107/70 95 Room Air 03/28/17 12:00 97.0 88 20 111/68 95 Room Air 03/28/17 12:00 82 03/28/17 09:16 82 134/98 03/28/17 08:00 82 03/28/17 08:00 97.0 82 20 134/98 94 Room Air 03/28/17 07:30 95 Room Air 21 03/28/17 07:30 Room Air 21 03/28/17 04:00 97.0 87 18 127/64 95 03/28/17 00:00 97.0 75 18 110/78 93 03/27/17 23:30 71 16 98 Facial 35 03/27/17 20:42 66 133/61 03/27/17 20:00 97.0 66 18 133/61 94 03/27/17 19:58 96 Room Air 21 03/27/17 19:58 Room Air 21 Intake and Output 03/27/17 03/28/17 19:00 07:00 Intake Total 410 ml Output Total 500 ml 600 ml Balance -90 ml -600 ml Intake Oral 300 ml IV Total 110 ml Output Urine Total 500 ml 600 ml Laboratory Tests Test 03/28/17 06:10 White Blood Count 8.0 K/UL (4.8-10.8) Red Blood Count 4.76 M/UL (4.70-6.10) Hemoglobin 14.5 G/DL (14.2-18.0) Hematocrit 43.1 % (42.0-52.0) Mean Corpuscular Volume 91 FL (80-99) Mean Corpuscular Hemoglobin 30.4 PG (27.0-31.0) Mean Corpuscular Hemoglobin Concent 33.5 G/DL (32.0-36.0) Red Cell Distribution Width 12.4 % (11.6-14.8) Platelet Count 165 K/UL (150-450) Mean Platelet Volume 8.3 FL (6.5-10.1) Neutrophils (%) (Auto) 50.5 % (45.0-75.0) Lymphocytes (%) (Auto) 38.0 % (20.0-45.0) Monocytes (%) (Auto) 7.8 % (1.0-10.0) Eosinophils (%) (Auto) 2.8 % (0.0-3.0) Basophils (%) (Auto) 0.8 % (0.0-2.0) Sodium Level 144 MMOL/L (136-145) Potassium Level 3.8 MMOL/L (3.5-5.1) Chloride Level 102 MMOL/L (98-107) Carbon Dioxide Level 36 MMOL/L (21-32) H Anion Gap 7 mmol/L (5-15) Blood Urea Nitrogen 19 mg/dL (7-18) H Creatinine 1.2 MG/DL (0.55-1.30) Estimat Glomerular Filtration Rate mL/min (>60) Glucose Level 88 MG/DL (74-106) Calcium Level 9.4 MG/DL (8.5-10.1) Total Bilirubin 0.6 MG/DL (0.2-1.0) Aspartate Amino Transf (AST/SGOT) 14 U/L (15-37) L Alanine Aminotransferase (ALT/SGPT) 21 U/L (12-78) Alkaline Phosphatase 93 U/L (46-116) Total Protein 7.0 G/DL (6.4-8.2) Albumin 3.4 G/DL (3.4-5.0) Globulin 3.6 g/dL Albumin/Globulin Ratio 0.9 (1.0-2.7) L Objective HEENT: Atraumatic, normocephalic. Pupils are equal, round, and reactive to light and accommodation. Extraocular movements are intact. NECK: JVP less than 5 cm. No carotid bruits. Carotid upstrokes 2+ bilaterally. CARDIOVASCULAR: Normal S1 and S2. Irregularly irregular rhythm. No murmurs, gallops, or rubs. PMI is at fourth intercostal space in the midclavicular line. LUNGS: Clear to auscultation bilaterally. ABDOMEN: Soft, nontender, and nondistended. No hepatosplenomegaly. Positive bowel sounds. EXTREMITIES: No evidence of edema, clubbing, or cyanosis. ALICE ABARCA Mar 28, 2017 18:45
--- NOTE | 2017-03-29 16:44 | General Progress Note ---
Assessment/Plan Problem List: (1) Uncontrolled seizures ICD Codes: R56.9 - Unspecified convulsions SNOMED: [id number] Qualifiers: Qualified Codes: R56.1 - Post traumatic seizures (2) Seizure as late effect of cerebrovascular accident (CVA) ICD Codes: I69.398 - Other sequelae of cerebral infarction; R56.9 - Unspecified convulsions SNOMED: [id number] Assessment/Plan delirium cont seroquel cont depakote Subjective Date patient seen: Mar 28, 2017 Neurologic/Psychiatric: Reports: anxiety, depressed, emotional problems Allergies: Coded Allergies: No Known Allergies (Unverified , 03/23/17) Subjective the pt is less agitated. yelling Objective Last 24 Hour Vital Signs Date Time Temp Pulse Resp B/P (MAP) Pulse Ox O2 Delivery O2 Flow Rate FiO2 03/28/17 19:07 Room Air 03/28/17 19:06 95 Room Air 21 Intake and Output 03/28/17 03/29/17 19:00 07:00 Intake Total 295 ml Output Total 800 ml Balance -505 ml Intake Oral 240 ml IV Total 55 ml Output Urine Total 800 ml Height (Feet): 6 Weight (Pounds): 167 General Appearance: no apparent distress, alert, confused, agitated Darryl Light M.D. Mar 29, 2017 16:43
--- NOTE | 2017-03-29 16:54 | Discharge Summary ---
Discharge Summary Hospital Course Date of Admission Mar 23, 2017 at 21:34 Date of Discharge Mar 28, 2017 at 20:00 Admitting Diagnosis uncontrolled seizures HPI Jose Hammer is a 71 year old male who was admitted on Mar 23, 2017 at 21:34 for Uncontrolled Seizures Hospital Course [id number] Discharge Discharge Disposition Patient was discharged to [facility](62) Discharge Diagnoses: Sissy Inman IT OPERATIONS MANAGER Mar 29, 2017 16:54
--- NOTE | 2017-03-30 00:15 | Discharge Summary 2 SIG ---
DATE OF ADMISSION: 03/23/2017 DATE OF DISCHARGE: 03/28/2017 CONSULTANTS: 1. Fede Hood M.D. 2. Darryl Light M.D. 3. Aaron Alberto M.D. 4. Willian Jacob M.D. 5. Scot Carter M.D. BRIEF HOSPITAL COURSE: The patient is a 71-year-old white male, who presented with an acute seizure episode from assisted facility ([facility]). The patient is status post CVA with left-sided hemiplegia and with completion of rehabilitation treatment at [facility]. The patient has history of seizures and was treated on Keppra. Recently, Keppra was discontinued and was placed on Vimpat and Depakote was added. On evaluation at ED, the patient was given IV Ativan as well as Depakote. EKG done was without any injury. Chest x-ray revealed old granulomatous disease with atherosclerotic changes, otherwise negative. He had a head CT that showed atrophy and chronic small vessel white matter ischemic changes. There was previous right temporal craniotomy and encephalomalacia in the right middle cerebral artery territory consistent with old infarct. He was admitted for acute seizure disorder. He was on anticoagulation for atrial fibrillation. He was given aspirin and Lovenox. He underwent cardiac and neurologic evaluation. He was seen by Dr. Alberto and was continued on Depakote 500 mg b.i.d. and Keppra 1000 mg b.i.d. Vimpat was titrated down to 100 mg b.i.d. MRI of the brain done showed focus of abnormally restricted diffusion with corresponding drop out on ADC in the region of the residual right child radiata/right frontal lobe compatible with area of acute ischemia. This is adjacent to the area of encephalomalacia from prior chronic left MCA territory infarct. Seizure was secondary to late effect of CVA. He was given aspirin and statins due to acute ischemic stroke. He had atrial fibrillation and was seen by Dr. Hood. Metoprolol was increased to 50 mg b.i.d. Anticoagulation not recommended due to history of prior hemorrhagic stroke. He was given PT and OT and had a swallow evaluation. He was recommended mechanical soft diet with nectar thick liquids and strict aspiration precaution. The patient was seen by Urology for hematuria. Anticoagulation was stopped. Bladder scan showed good post residual indicating that he is draining his bladder well, no need for catheter insertion.. He had episodes of confusion and agitation and was yelling. He was seen by psychiatrist and was given Seroquel and Depakote. He was then eventually discharged to [facility] [place]. FINAL DIAGNOSES: 1. Acute on chronic seizure disorder. 2. 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 3. Dementia with agitation. 4. Hypernatremia. 5. Anemia. 6. Atrial fibrillation. 7. History of intracranial hemorrhage status post craniotomy. 8. Hematuria. DISCHARGE MEDICATIONS: Refer to medication list. Continue with hospital medications. DISPOSITION: The patient was transferred to acute rehabilitation in [place]. Phan Johnson M.D. I have been assigned to dictate discharge summary on this account and I was not involved in the patient's management. Sissy Inman N.P. DR: LUCIA JOB#: [id number] CC: [id number]
--- NOTE | 2017-04-23 16:02 | Diagnostic Imaging Report ---
Indications: Dysphagia Technique: Patient ingested multiple substances under the supervision of speech pathology. Video fluoroscopic recording performed. Total fluoroscopy time to 53 seconds. Total dose area product [id number] mGycm2 Comparison: none Findings: There is trace penetration of thin liquid barium. With nectar tiny ingestion of barium puree is uneventful except for some delay in initiating deglutition thick liquid barium, no definite aspiration or penetration. Some early pooling is demonstrated. Impression: Trace penetration of thin liquid barium. Negative for evidence of aspiration Please refer to speech pathology report for more detailed analysis
== END 2017-03-28 20:00 | disposition short-term general hospital (02) | DRG 100 ==
LOC: EDBD 20:29 → EMR 21:24 → 2E 21:34 → EDBEDREQ 23:10 → ENRESERV 23:11 → EDBEDREQ 23:36
DX: G40.909 Epilepsy, unspecified, not intractable, without status epilepticus (principal); I63.9 Cerebral infarction, unspecified; I48.0 Paroxysmal atrial fibrillation; I69.954 Hemiplegia and hemiparesis following unspecified cerebrovascular disease affecting left non-dominant side; E87.0 Hyperosmolality and hypernatremia; R13.10 Dysphagia, unspecified; F03.90 Unspecified dementia, unspecified severity, without behavioral disturbance, psychotic disturbance, mood disturbance, and anxiety; I10 Essential (primary) hypertension; J44.9 Chronic obstructive pulmonary disease, unspecified; R31.0 Gross hematuria; E78.00 Pure hypercholesterolemia, unspecified; D64.9 Anemia, unspecified; E78.5 Hyperlipidemia, unspecified; I69.119 Unspecified symptoms and signs involving cognitive functions following nontraumatic intracerebral hemorrhage; I69.398 Other sequelae of cerebral infarction; G47.33 Obstructive sleep apnea (adult) (pediatric); Z99.89 Dependence on other enabling machines and devices; Z79.82 Long term (current) use of aspirin
CPT/HCPCS: 36415; 70450; 70551; 71045; 74230; 80053; 80164; 80299; 81001; 82550; 82962; 83036; 84443; 84484; 85025; 87081; 87086; 93005; 94660; 94760; 99285